=== PATIENT | male | born 1955 | race Caucasian/White ===

== ENCOUNTER 2016-10-18 10:05 | Inpatient (IN) | payer OTHER ==
[2016-10-18 10:41] VITALS: BMI 21.2
--- NOTE | 2016-10-18 13:44 | HP ---
CIWA Score - CIWA Score Nausea/Vomitin-No Nausea/No Vomiting Muscle Tremors: 4-Moderate,w/Arms Extend Anxiety: 4-Mod. 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 PT ON ZEPATIER FOR HEP C TX AND HE IS NOT SCHEDULED TO RECIEVE IT TILL 10/24/16. Exam Limitations: No Limitations - Ebola screening Have you traveled outside of the country in the last 21 days: No Have you had contact with anyone from an Ebola affected area: No Have you been sick,other than usual withdrawal symptoms: No Do you have a fever: No - Review of Systems Constitutional: Chills, Loss of Appetite, Night Sweats, Changes in sleep EENT: reports: Blurred Vision, Tearing, Nose Congestion, Dental Problems (UPPER/ LOWER DENTURES) Respiratory: reports: Shortness of Breath (HX ASTHMA), Wheezing Cardiac: reports: Chest Pain, Lightheadedness GI: reports: Poor Appetite, Poor Fluid Intake, Abdominal cramping : reports: Dysuria Musculoskeletal: reports: Back Pain, Joint Pain, Other (ARHTHRITIS LEFT ANKLE-- SURGERY X 3.) Integumentary: reports: No Symptoms Reported Neuro: reports: Headache, Seizure, Tremors, Unsteady Gait, Dizziness Endocrine: reports: No Symptoms Reported Hematology: reports: Anemia Psychiatric: reports: Orientated x3, Anxious, Depressed Other Systems: Reviewed and Negative Patient History - Patient Medical History Hx Anemia: Yes ( ) Hx Asthma: Yes Hx Chronic Obstructive Pulmonary Disease (COPD): No Hx Cancer: No Hx Cardiac Disorders: No Hx Congestive Heart Failure: No Hx Hypertension: No Hx Hypercholesterolemia: No Hx Pacemaker: No HX Cerebrovascular Accident: No Hx Seizures: Yes (drug related-last episode was in 08/2016) Hx Dementia: No Hx Diabetes: No Hx Gastrointestinal Disorders: No Hx Liver Disease: Yes (CIRRHOSIS) Hx Genitourinary Disorders: No Hx Sexually Transmitted Disorders: Yes (syphilis, gonorrhea, herpes) Hx Renal Disease (ESRD): No Hx Thyroid Disease: No Hx Human Immunodeficiency Virus (HIV): No (NEGATIVE HX) Hx Hepatitis C: Yes (IN TREATMENT WITH ZEPATIER) Hx Depression: Yes Hx Suicide Attempt: No (DENIES) Hx Schizophrenia: Yes - Patient Surgical History Past Surgical History: No Hx Neurologic Surgery: No Hx Cataract Extraction: No Hx Cardiac Surgery: No Hx Lung Surgery: No Hx Breast Surgery: No Hx Breast Biopsy: No Hx Abdominal Surgery: No Hx Appendectomy: No Hx Cholecystectomy: No Hx Genitourinary Surgery: No Hx Orthopedic Surgery: No Anesthesia Reaction: No - PPD History Previous Implant?: Yes Documented Results: Negative w/proof Implanted On Prior R Admission?: Yes Date: 07/01/11 Results: 0 mm PPD to be Administered?: Yes - Reproductive History Patient is a Female of Child Bearing Age (11 -55 yrs old): No (MALE) Patient : (N/A) - Smoking Cessation Smoking history: Current every day smoker Have you smoked in the past 12 months: Yes Aproximately how many cigarettes per day: 7 Cigars Per Day: 7 Hx Chewing Tobacco Use: No Initiated information on smoking cessation: Yes 'Breaking Loose' booklet given: 10/18/16 - Substance & Tx. History Hx Alcohol Use: No (DENIES) Hx Substance Use: Yes (XANAX) Substance Use Type: Tranquilizers Hx Substance Use Treatment: Yes (CURRENTLY ON MMTP 90 MG DAILY; LAST HERE IN 2011) - Substances Abused Xanax Route: Oral Frequency: 3-6 times per week Amount used: 4 mg. Age of first use: 43 Date of Last Use: 10/17/16 Family Disease History - Family Disease History Family Disease History: CA: Mother (), Other: Father (ALCOHOLISM- ), Brother (HTN), Sister (HTN) Admission Physical Exam BHS - Vital Signs Vital Signs: Vital Signs - 24 hr 10/18/16 10:38 Temperature 97.4 F L Pulse Rate 67 Respiratory 18 Rate Blood Pressure 126/84 - Physical General Appearance: Yes: Moderate Distress, Irritable, Anxious HEENTM: Yes: EOMI, Normocephalic, GUSTAVO Respiratory: Yes: Lungs Clear, Normal Breath Sounds, No Respiratory Distress Neck: Yes: Supple, Trachea in good position Breast: Yes: Breast Exam Deferred Cardiology: Yes: Regular Rhythm, Regular Rate, S1, S2 Abdominal: Yes: Normal Bowel Sounds, Non Tender, Flat, Soft Genitourinary: Yes: Other (N/C) Back: Yes: Within Normal Limits Musculoskeletal: Yes: full range of Motion, Gait Steady Extremities: Yes: Normal Range of Motion, Non-Tender Neurological: Yes: chief clerk II-XII NML intact, Fully Oriented, Alert Integumentary: Yes: Dry, Warm Lymphatic: Yes: Within Normal Limits - Diagnostic (1) Sedative, hypnotic or anxiolytic dependence with withdrawal, uncomplicated Current Visit: Yes Status: Acute (2) OLD FX LEFT ANKLE,AMBULATE WITH CANE Current Visit: Yes Status: Chronic Comment: PT DID NOT BRING CANE. PT "USED MY UMBRELLA CANE TODAY BECAUSE IT WAS RAINING". (3) Asthma Current Visit: Yes Status: Chronic Qualifiers: Asthma severity: mild intermittent Asthma complication type: uncomplicated Qualified Code(s): J45.20 - Mild intermittent asthma, uncomplicated (4) Seizure disorder Current Visit: Yes Status: Chronic (5) Cirrhosis of liver Current Visit: Yes Status: Chronic Qualifiers: Ascites presence: without ascites Comment: CURRENTLY IN TREATMENT WITH ZEPATIER (6) Methadone maintenance therapy patient Current Visit: Yes Status: Chronic Cleared for Admission S - Detox or Rehab [facility] Level of Care: Medically Managed Detox Regimen/Protocol: Valium [facility] Breath Alcohol Content Breath Alcohol Content: 0 Urine Drug Screen - Results Drug Screen Negative: No Urine Drug Screen Results: BZO-Benzodiazepines, MTD-Methadone
[2016-10-18] MEDS ORDERED: ACETAMINOPHEN 325 MG TABLET (FP) PO PRN (13:57)
[2016-10-18] MEDS ORDERED: IBUPROFEN 400 MG TABLET (FP) PO PRN (13:57)
[2016-10-18] MEDS ORDERED: diazePAM 5 MG TABLET PO PRN (13:57)
[2016-10-18] MEDS ORDERED: MENTHOL/PHENOL 1 EACH UD MM PRN (13:57)
[2016-10-18] MEDS ORDERED: NICOTINE POLACRILEX 2 MG GUM BC PRN (13:57)
[2016-10-18] MEDS ORDERED: LOPERAMIDE HCL 2 MG CAPSULE PO PRN (13:57)
[2016-10-18] MEDS ORDERED: MAGNESIUM HYDROX 2400MG/30ML ORAL SUSPENSION 30 ML CUP PO PRN (13:57)
[2016-10-18] MEDS ORDERED: MAG HYDROX/AL HYDROX/SIMETH 30 ML UNIT-DOSE CUP PO PRN (13:57)
[2016-10-18] MEDS ORDERED: P-EPHED 60MG/TRIPROLIDI 2.5MG TABLET PO PRN (13:57)
[2016-10-18] MEDS ORDERED: MAGNESIUM CITRATE 300 ML BOTTLE PO PRN (13:57)
[2016-10-18] MEDS ORDERED: guaiFENesin/D-METHORPHAN HB 10 ML UNIT-DOSE CUPS PO PRN (13:57)
[2016-10-18] MEDS ORDERED: hydrOXYzine PAMOATE 50 MG CAPSULE (FP) PO PRN (13:57)
[2016-10-18] MEDS ORDERED: ALBUTEROL SO4 6.7 GM HFA INHALER IH PRN (14:03)
[2016-10-18] MEDS ORDERED: METHADONE HCL 10 MG TABLET (FOR DETOX USE ONLY) PO ONE ×2 (14:30→23:00)
[2016-10-18] MEDS ORDERED: diazePAM 5 MG TABLET PO ONE (14:30)
[2016-10-18] MEDS: NICOTINE 14 MG/24 HOURS TOPICAL PATCH TD SCH (17:18)
[2016-10-18 17:25] LABS: URINE APPEARANCE SLCLOUDY; URINE BILIRUBIN NEGATIVE (NEGATIVE); URINE BLOOD NEGATIVE (NEGATIVE); URINE COLOR YELLOW; URINE GLUCOSE (UA) NEGATIVE (NEGATIVE); URINE KETONE NEGATIVE (NEGATIVE); URINE LEUK ESTERASE TRACE (NEGATIVE); URINE NITRITE NEGATIVE (NEGATIVE); URINE PROTEIN NEGATIVE (NEGATIVE); URINE UROBILINOGEN NEGATIVE mg/dL (0.2-1.0)
[2016-10-18 17:37] LABS: URINE RBC <1 /hpf (0-3)
[2016-10-18] MEDS: diphenhydrAMINE HCL 50 MG CAPSULE PO PRN (22:53)
[2016-10-18] MEDS: diazePAM 5 MG TABLET PO SCH (22:53)
[2016-10-18] MEDS: THIAMINE HCL 100 MG TABLET (FP) PO SCH (22:53)
[2016-10-19] MEDS ORDERED: METHADONE HCL 10 MG TABLET ONE (04:04)
[2016-10-19] MEDS ORDERED: METHADONE HCL 40 MG DISPERSABLE TABLET ONE (04:04)
[2016-10-19] MEDS: METHADONE 80 MG, METHADONE 10 MG PO SCH (05:29)
[2016-10-19] MEDS: diazePAM 5 MG TABLET PO SCH ×3 (05:30→23:00)
[2016-10-19] MEDS ORDERED: METHADONE HCL 10 MG TABLET PO SCH (06:00)
--- NOTE | 2016-10-19 09:06 | EKG ---
Test Reason : Blood Pressure : / mmHG Vent. Rate : 060 BPM Atrial Rate : 060 BPM P-R Int : 130 ms QRS Dur : 082 ms QT Int : 504 ms P-R-T Axes : 041 -58 055 degrees QTc Int : 504 ms NORMAL SINUS RHYTHM LEFT ANTERIOR FASCICULAR BLOCK PROLONGED QT ABNORMAL ECG NO PREVIOUS ECGS AVAILABLE Confirmed by FAHAD CALIX MD ([id number]) on 10/19/2016 9:06:31 AM Referred By: Ced Lin Confirmed By:FAHDA CALIX MD
[2016-10-19 09:52] LABS: MCH 30.7 pg (25.7-33.7); MCHC 33.5 g/dl (32.0-35.9); MEAN CELL VOLUME 91.5 fl (80-96); MEAN PLT VOLUME 10.9 fl (7.5-11.1); PLATELET COUNT 84 K/MM3 (134-434); RDW 14.4 % (11.9-15.9); WHITE BLOOD COUNT 6.5 K/mm3 (4.0-10.0)
[2016-10-19] MEDS ORDERED: METHADONE HCL 10 MG TABLET (FOR DETOX USE ONLY) PO SCH (10:00)
[2016-10-19] MEDS: NICOTINE 14 MG/24 HOURS TOPICAL PATCH TD SCH (10:40)
[2016-10-19] MEDS: PRENATAL VITAMINS W/ FOLIC ACID TABLET (FP) PO SCH (10:40)
[2016-10-19 11:05] LABS: ALBUMIN 3.9 g/dl (3.4-5.0); ALK PHOS 80 U/L (45-117); ANION GAP 7 (8-16); BILIRUBIN,TOTAL 1.3 mg/dL (0.2-1.0); CALCIUM 9.2 mg/dL (8.5-10.1); CO2 30 mmol/L (21-32); CREATININE 0.9 mg/dL (0.7-1.3); GLUCOSE,RANDOM 76 mg/dL (74-106); SGOT/AST 26 U/L (15-37); SGPT/ALT 18 U/L (12-78); TOT PROT 7.5 g/dl (6.4-8.2)
--- NOTE | 2016-10-19 12:31 | CONSULT ---
[facility] Psychiatric Consult - Data Date of interview: 10/19/16 Admission source: [facility] Identifying data: Readmission to [facility] for this 61 y/o male seeking detox treatment on for xanax and opioid dependence.Patient is ,a father of one,domiciled,unemployed and supported on SSI benefits. Substance Abuse History: Discussed with patient in this interview.Patient confirms the pattern of subastance abuse described in this report. Smoking Cessation. Smoking history: Current every day smoker. Have you smoked in the past 12 months: Yes. Aproximately how many cigarettes per day: 7. Cigars Per Day: 7. Hx Chewing Tobacco Use: No. Initiated information on smoking cessation : Yes. 'Breaking Loose' booklet given: 10/18/16. - Substance & Tx. History. Hx Alcohol Use: No (DENIES). Hx Substance Use: Yes (XANAX). Substance Use Type : Tranquilizers. Hx Substance Use Treatment: Yes (CURRENTLY ON MMTP 90 MG DAILY ; LAST HERE IN 2011). - Substances Abused. Xanax. Route: Oral. Frequency : 3-6 times per week. Amount used: 4 mg. Age of first use: 43. Date of Last Use: 10/17/16 Medical History: Remarkable for anemia,withdrawal-related seizures,bronchial asthma,hepatitis C,herpes genitalis and past treatment for gonorrhea + syphilis. Psychiatric History: Questionable historian.Presents with a history of past psychiatric hospitalizations at [facility].Diagnosed with Schizophrenia.Mr Sparks reports follow up with a psychiatrist for past three years.Lost to OPD care at this time (psychiatrist relocated to another area).Used to be prescribed ambien + xanax.Patient denies history of suicide attempts.Currently on methadone maintenance (90 mg/day). Physical/Sexual Abuse/Trauma History: Patient denies. Additional Comment: Urine Drug Screen Results: BZO-Benzodiazepines, MTD- Methadone.Noted. Mental Status Exam - Mental Status Exam Alert and Oriented to: Time, Place, Person Cognitive Function: Grossly Intact Patient Appearance: Well Groomed (frail habitus) Mood: Nervous, Withdrawn, Apprehensive Patient Behavior: Passive, Fatigued, Appropriate, Cooperative Speech Pattern: Clear Voice Loudness: Mildly Soft/Quiet Thought Process: Goal Oriented Thought Disorder: Not Present Hallucinations: Denies Suicidal Ideation: Denies Homicidal Ideation: Denies Insight/Judgement: Poor Sleep: Well Appetite: Poor, Weight loss Muscle strength/Tone: Normal Gait/Station: Other (slow gait) Psychiatric Findings - Problem List ([place] 1, 2,3) (1) Sedative, hypnotic or anxiolytic dependence with withdrawal, uncomplicated Current Visit: Yes Status: Acute (2) Opioid dependence on agonist therapy Current Visit: Yes Status: Acute (3) Substance induced mood disorder Current Visit: Yes Status: Acute (4) Schizoaffective disorder Current Visit: No Status: Chronic Comment: By history. (5) Asthma Current Visit: Yes Status: Chronic Qualifiers: Asthma severity: mild intermittent Asthma complication type: uncomplicated Qualified Code(s): J45.20 - Mild intermittent asthma, uncomplicated (6) Cirrhosis of liver Current Visit: Yes Status: Chronic Qualifiers: Ascites presence: without ascites Comment: CURRENTLY IN TREATMENT WITH ZEPATIER (7) Seizure disorder Current Visit: Yes Status: Chronic (8) OLD FX LEFT ANKLE,AMBULATE WITH CANE Current Visit: Yes Status: Chronic Comment: PT DID NOT BRING CANE. PT "USED MY UMBRELLA CANE TODAY BECAUSE IT WAS RAINING". - Initial Treatment Plan Initial Treatment Plan: Psychoeducation.Detoxification in progress.Observation.
--- NOTE | 2016-10-19 12:56 | PN ---
[facility] CIWA - CIWA Score Nausea/Vomitin-Mild Nausea/No Vomiting Muscle Tremors: 2 Anxiety: 4-Mod. Anxious/Guarded Agitation: 2 Paroxysmal Sweats: 3 Orientation: 2-Disoriented Date<2 days Tacttile Disturbances: 0-None Auditory Disturbances: 0-None Visual Disturbances: 0-None Headache: 4-Moderately Severe CIWA-Ar Total Score: 18 BHS Progress Note (SOAP) Subjective: Body Aches, H/A, Interrupted sleep, Sweating. Objective: PT. A & O X 2 (DISORIENTED ABOUT DAY / DATE). NO ACUTE DISTRESS. 10/19/16 12:53 Vital Signs Temperature 98.4 F 10/19/16 11:14 Pulse Rate 66 10/19/16 11:14 Respiratory Rate 18 10/19/16 11:14 Blood Pressure 108/84 10/19/16 11:14 O2 Sat by Pulse Oximetry (%) Laboratory Tests 10/18/16 10/19/16 10/19/16 16:00 06:00 06:00 WBC 6.5 RBC 4.81 Hgb 14.7 Hct 44.0 MCV 91.5 MCH 30.7 MCHC 33.5 RDW 14.4 Plt Count 84 L MPV 10.9 Sodium 141 Potassium 4.4 Chloride 104 Carbon Dioxide 30 Anion Gap 7 L BUN 10 D Creatinine 0.9 Creat Clearance w eGFR > 60 Random Glucose 76 D Calcium 9.2 Total Bilirubin 1.3 H AST 26 D ALT 18 D Alkaline Phosphatase 80 D Total Protein 7.5 Albumin 3.9 Urine Color Yellow Urine Appearance Slcloudy Urine pH 8.0 D Ur Specific [place] 1.015 Urine Protein Negative Urine Glucose (UA) Negative Urine Ketones Negative Urine Blood Negative Urine Nitrite Negative Urine Bilirubin Negative Urine Urobilinogen Negative Ur Leukocyte Esterase Trace Urine RBC <1 Urine WBC None LABS NOTED. RPR RESULT PENDING. 10/19/16 12:55 Assessment: 10/19/16 12:54 WITHDRAWAL SYMPTOMS. Plan: CONTINUE DETOX.
--- NOTE | 2016-10-19 14:23 | PN ---
[facility] Progress Note Note: Received report from RN about admission RPR result: REACTIVE 1:2 (MHA-TP Previously Reactive in 06/2011.). Patient reports previous treatment for Syphilis in past. Chaparro Moffett NP
[2016-10-19] MEDS: THIAMINE HCL 100 MG TABLET (FP) PO SCH (23:00)
[2016-10-19] MEDS: diphenhydrAMINE HCL 50 MG CAPSULE PO PRN (23:01)
[2016-10-20] MEDS ORDERED: METHADONE HCL 10 MG TABLET ONE (04:49)
[2016-10-20] MEDS ORDERED: METHADONE HCL 40 MG DISPERSABLE TABLET ONE (04:50)
[2016-10-20] MEDS: METHADONE 80 MG, METHADONE 10 MG PO SCH (06:31)
[2016-10-20] MEDS ORDERED: METHADONE HCL 5 MG TABLET (FOR DETOX USE ONLY) PO SCH (10:00)
[2016-10-20] MEDS: diazePAM 5 MG TABLET PO SCH ×2 (10:47→22:33)
[2016-10-20] MEDS: PRENATAL VITAMINS W/ FOLIC ACID TABLET (FP) PO SCH (10:47)
[2016-10-20] MEDS: NICOTINE 14 MG/24 HOURS TOPICAL PATCH TD SCH (10:48)
--- NOTE | 2016-10-20 20:44 | PN ---
[facility] CIWA - CIWA Score Nausea/Vomitin-No Nausea/No Vomiting Muscle Tremors: 3 Anxiety: 4-Mod. Anxious/Guarded Agitation: 3 Paroxysmal Sweats: 3 Orientation: 0-Oriented Tacttile Disturbances: 1-Very Mild Itch/Numbness Auditory Disturbances: 1-Very Mild Visual Disturbances: 2-Mild Sensitivity Headache: 0-None Present CIWA-Ar Total Score: 17 S Progress Note (SOAP) Subjective: Tremors, Constipation, Interrupted Sleep. Objective: PT. A & O X 3, OBSERVED AMBULATING ON UNIT. NO ACUTE DISTRESS. 10/20/16 20:40 Vital Signs Temperature 99.0 F 10/20/16 18:50 Pulse Rate 60 10/20/16 18:50 Respiratory Rate 16 10/20/16 18:50 Blood Pressure 110/73 10/20/16 18:50 O2 Sat by Pulse Oximetry (%) Laboratory Tests 10/18/16 10/19/16 10/19/16 16:00 06:00 06:00 WBC 6.5 RBC 4.81 Hgb 14.7 Hct 44.0 MCV 91.5 MCH 30.7 MCHC 33.5 RDW 14.4 Plt Count 84 L MPV 10.9 Sodium 141 Potassium 4.4 Chloride 104 Carbon Dioxide 30 Anion Gap 7 L BUN 10 D Creatinine 0.9 Creat Clearance w eGFR > 60 Random Glucose 76 D Calcium 9.2 Total Bilirubin 1.3 H AST 26 D ALT 18 D Alkaline Phosphatase 80 D Total Protein 7.5 Albumin 3.9 Urine Color Yellow Urine Appearance Slcloudy Urine pH 8.0 D Ur Specific [place] 1.015 Urine Protein Negative Urine Glucose (UA) Negative Urine Ketones Negative Urine Blood Negative Urine Nitrite Negative Urine Bilirubin Negative Urine Urobilinogen Negative Ur Leukocyte Esterase Trace Urine RBC <1 Urine WBC None RPR Titer T.pallidum Ab (MHA) 10/19/16 06:00 WBC RBC Hgb Hct MCV MCH MCHC RDW Plt Count MPV Sodium Potassium Chloride Carbon Dioxide Anion Gap BUN Creatinine Creat Clearance w eGFR Random Glucose Calcium Total Bilirubin AST ALT Alkaline Phosphatase Total Protein Albumin Urine Color Urine Appearance Urine pH Ur Specific [place] Urine Protein Urine Glucose (UA) Urine Ketones Urine Blood Urine Nitrite Urine Bilirubin Urine Urobilinogen Ur Leukocyte Esterase Urine RBC Urine WBC RPR Titer Reactive 1:2 H T.pallidum Ab (A) Previously reactive LABS NOTED. Assessment: 10/20/16 20:41 WITHDRAWAL SYMPTOMS. Plan: CONTINUE DETOX. INCREASE DAILY PO FLUID INTAKE. PRN MOM FOR CONSTIPATION.
[2016-10-20] MEDS: THIAMINE HCL 100 MG TABLET (FP) PO SCH (22:33)
[2016-10-20] MEDS: diphenhydrAMINE HCL 50 MG CAPSULE PO PRN (22:33)
[2016-10-21] MEDS ORDERED: METHADONE HCL 10 MG TABLET ONE (05:05)
[2016-10-21] MEDS ORDERED: METHADONE HCL 40 MG DISPERSABLE TABLET ONE (05:06)
[2016-10-21] MEDS: METHADONE 80 MG, METHADONE 10 MG PO SCH (05:26)
[2016-10-21] MEDS: PRENATAL VITAMINS W/ FOLIC ACID TABLET (FP) PO SCH (10:24)
[2016-10-21] MEDS: NICOTINE 14 MG/24 HOURS TOPICAL PATCH TD SCH (10:24)
[2016-10-21] MEDS: diazePAM 5 MG TABLET PO SCH ×2 (10:24→22:48)
--- NOTE | 2016-10-21 18:04 | PN ---
[facility] Progress Note (SOAP) Subjective: Stomach ache, constipation (took MOM without any improvement, doesn't want citroma, prefers dulcolax), sweating, anxious, interrupted sleep Objective: 10/21/16 18:01 Last Vital Signs Temp Pulse Resp BP Pulse Ox 97.0 F L 64 18 110/78 10/21/16 13:32 10/21/16 13:32 10/21/16 13:32 10/21/16 13:32 Laboratory Tests 10/18/16 10/19/16 10/19/16 16:00 06:00 06:00 WBC 6.5 RBC 4.81 Hgb 14.7 Hct 44.0 MCV 91.5 MCH 30.7 MCHC 33.5 RDW 14.4 Plt Count 84 L MPV 10.9 Sodium 141 Potassium 4.4 Chloride 104 Carbon Dioxide 30 Anion Gap 7 L BUN 10 D Creatinine 0.9 Creat Clearance w eGFR > 60 Random Glucose 76 D Calcium 9.2 Total Bilirubin 1.3 H AST 26 D ALT 18 D Alkaline Phosphatase 80 D Total Protein 7.5 Albumin 3.9 Urine Color Yellow Urine Appearance Slcloudy Urine pH 8.0 D Ur Specific [place] 1.015 Urine Protein Negative Urine Glucose (UA) Negative Urine Ketones Negative Urine Blood Negative Urine Nitrite Negative Urine Bilirubin Negative Urine Urobilinogen Negative Ur Leukocyte Esterase Trace Urine RBC <1 Urine WBC None RPR Titer T.pallidum Ab (A) 10/19/16 06:00 WBC RBC Hgb Hct MCV MCH MCHC RDW Plt Count MPV Sodium Potassium Chloride Carbon Dioxide Anion Gap BUN Creatinine Creat Clearance w eGFR Random Glucose Calcium Total Bilirubin AST ALT Alkaline Phosphatase Total Protein Albumin Urine Color Urine Appearance Urine pH Ur Specific [place] Urine Protein Urine Glucose (UA) Urine Ketones Urine Blood Urine Nitrite Urine Bilirubin Urine Urobilinogen Ur Leukocyte Esterase Urine RBC Urine WBC RPR Titer Reactive 1:2 H T.pallidum Ab (MHA) Previously reactive Labs noted Assessment: 10/21/16 18:02 Withdrawal symptoms Plan: Continue detox Dulcolax 10mg PO x 1 dose for constipation, encouraged to drink lots of water
[2016-10-21] MEDS: THIAMINE HCL 100 MG TABLET (FP) PO SCH (22:48)
[2016-10-21] MEDS: diphenhydrAMINE HCL 50 MG CAPSULE PO PRN (22:49)
[2016-10-22] MEDS ORDERED: METHADONE HCL 10 MG TABLET ONE (02:29)
[2016-10-22] MEDS ORDERED: METHADONE HCL 40 MG DISPERSABLE TABLET ONE (02:30)
[2016-10-22] MEDS: METHADONE 80 MG, METHADONE 10 MG PO SCH (05:35)
--- NOTE | 2016-10-22 08:59 | DS ---
[facility] Detox Discharge Summary Admission Date: 10/18/16 Discharge Date: 10/22/16 - History Present History: Sedative Dependence, MMTP Pertinent Past History: asthma, depression , insomnia, anxiety,liver cirrhosis, old fx left ankle ambulates w cane - Physical Exam Results Vital Signs: Vital Signs Temperature 97.3 F L 10/22/16 06:35 Pulse Rate 62 10/22/16 06:35 Respiratory Rate 18 10/22/16 06:35 Blood Pressure 138/88 10/22/16 06:35 O2 Sat by Pulse Oximetry (%) Laboratory Tests 10/18/16 10/19/16 10/19/16 16:00 06:00 06:00 WBC 6.5 RBC 4.81 Hgb 14.7 Hct 44.0 MCV 91.5 MCH 30.7 MCHC 33.5 RDW 14.4 Plt Count 84 L MPV 10.9 Sodium 141 Potassium 4.4 Chloride 104 Carbon Dioxide 30 Anion Gap 7 L BUN 10 D Creatinine 0.9 Creat Clearance w eGFR > 60 Random Glucose 76 D Calcium 9.2 Total Bilirubin 1.3 H AST 26 D ALT 18 D Alkaline Phosphatase 80 D Total Protein 7.5 Albumin 3.9 Urine Color Yellow Urine Appearance Slcloudy Urine pH 8.0 D Ur Specific [place] 1.015 Urine Protein Negative Urine Glucose (UA) Negative Urine Ketones Negative Urine Blood Negative Urine Nitrite Negative Urine Bilirubin Negative Urine Urobilinogen Negative Ur Leukocyte Esterase Trace Urine RBC <1 Urine WBC None RPR Titer T.pallidum Ab (MHA) 10/19/16 06:00 WBC RBC Hgb Hct MCV MCH MCHC RDW Plt Count MPV Sodium Potassium Chloride Carbon Dioxide Anion Gap BUN Creatinine Creat Clearance w eGFR Random Glucose Calcium Total Bilirubin AST ALT Alkaline Phosphatase Total Protein Albumin Urine Color Urine Appearance Urine pH Ur Specific [place] Urine Protein Urine Glucose (UA) Urine Ketones Urine Blood Urine Nitrite Urine Bilirubin Urine Urobilinogen Ur Leukocyte Esterase Urine RBC Urine WBC RPR Titer Reactive 1:2 H T.pallidum Ab (MHA) Previously reactive Pertinent Admission Physical Exam Findings: withdrawal sx - Treatment Hospital Course: Detox Protocol Followed, Detoxed Safely, Responded well, Discharged Condition Good, Rehab Referral Accepted - Medication Discharge Medications: Ambulatory Orders Albuterol Sulfate Inhaler - [Ventolin HFA Inhaler -] 2 inh PO Q4H PRN 10/18/16 Elbasvir/Grazoprevir [Zepatier 50-100 mg Tablet] 1 each PO DAILY 10/18/16 Zolpidem Tartrate [Ambien] 10 mg PO HS 10/18/16 - Diagnosis (1) Opioid dependence on agonist therapy Current Visit: Yes Status: Chronic (2) Sedative, hypnotic or anxiolytic dependence with withdrawal, uncomplicated Current Visit: Yes Status: Chronic (3) Substance induced mood disorder Current Visit: Yes Status: Acute (4) Asthma Current Visit: Yes Status: Chronic Qualifiers: Asthma severity: mild intermittent Asthma complication type: uncomplicated Qualified Code(s): J45.20 - Mild intermittent asthma, uncomplicated (5) Cirrhosis of liver Current Visit: Yes Status: Chronic Qualifiers: Ascites presence: without ascites (6) OLD FX LEFT ANKLE,AMBULATE WITH CANE Current Visit: Yes Status: Chronic (7) Seizure disorder Current Visit: Yes Status: Chronic (8) Syncope Current Visit: No Status: Resolved (9) Schizoaffective disorder Current Visit: Yes Status: Chronic - AMA Did Patient Leave Against Medical Advice: No
[2016-10-22 09:37] VITALS: BP 122/81; PULSE 68; TEMP 97.4
[2016-10-22] MEDS ORDERED: METHADONE HCL 10 MG TABLET (FOR DETOX USE ONLY) PO SCH (10:00)
[2016-10-22] MEDS ORDERED: diazePAM 5 MG TABLET PO SCH (10:00)
[2016-10-23] MEDS ORDERED: METHADONE HCL 5 MG TABLET (FOR DETOX USE ONLY) PO SCH (06:00)
== END 2016-10-22 09:22 | disposition home or self-care (01) | DRG 773 ==
LOC: YASAS 10:05 → Y3N 14:03
PROVIDERS: ADMIT Internal Medicine Addiction Medicine; ATTEND Internal Medicine Addiction Medicine
PROC: HZ2ZZZZ Detoxification Services for Substance Abuse Treatment (ICD-10-PCS; principal; 2016-10-18)
DX: F13.230 Sedative, hypnotic or anxiolytic dependence with withdrawal, uncomplicated (principal); F11.20 Opioid dependence, uncomplicated; F17.210 Nicotine dependence, cigarettes, uncomplicated; F19.24 Other psychoactive substance dependence with psychoactive substance-induced mood disorder; F25.9 Schizoaffective disorder, unspecified; G40.909 Epilepsy, unspecified, not intractable, without status epilepticus; J45.20 Mild intermittent asthma, uncomplicated; K74.60 Unspecified cirrhosis of liver; B17.10 Acute hepatitis C without hepatic coma; D64.9 Anemia, unspecified; R26.2 Difficulty in walking, not elsewhere classified; Z99.89 Dependence on other enabling machines and devices; Z87.81 Personal history of (healed) traumatic fracture; Z87.438 Personal history of other diseases of male genital organs
CPT/HCPCS: 36415; 80053; 81003; 81015; 85027; 86593; 86780; 93005; 93010

== ENCOUNTER 2017-08-16 10:43 | Inpatient (IN) | payer OTHER ==
[2017-08-16 11:21] VITALS: BMI 22.1
--- NOTE | 2017-08-16 13:20 | HP ---
CIWA Score - CIWA Score Nausea/Vomitin Muscle Tremors: 3 Anxiety: 3 Agitation: 3 Paroxysmal Sweats: 1-Minimal Palms Moist Orientation: 0-Oriented Tacttile Disturbances: 1-Very Mild Itch/Numbness Auditory Disturbances: 1-Very Mild Visual Disturbances: 0-None Headache: 2-Mild CIWA-Ar Total Score: 17 Admission ROS BHS - HPI Chief Complaint: i need help to stop using xanax and klonopin Allergies/Adverse Reactions: Allergies Allergy/AdvReac Type Severity Reaction Status Date / Time No Known Allergies Allergy Verified 08/16/17 13:40 History of Present Illness: this 62 years male with xanax and klonopin dependence,seeking detox,withdrawal symptom,mmtp 90 mgs /day,last medicated today, history of brain tumor on radiation and chemotherapy in 09/27 treated at [facility] weight loss nicotine dependence no significant period of sobriety anxiety and depression - Ebola screening Have you traveled outside of the country in the last 21 days: No Have you had contact with anyone from an Ebola affected area: No Have you been sick,other than usual withdrawal symptoms: No Do you have a fever: No - Review of Systems Constitutional: Chills, Loss of Appetite, Malaise, Night Sweats, Changes in sleep, Weakness, Unexplained wgt Loss EENT: reports: Nose Congestion Respiratory: reports: No Symptoms reported Cardiac: reports: No Symptoms Reported GI: reports: Diarrhea, Nausea, Vomiting, Abdominal cramping : reports: No Symptoms Reported Musculoskeletal: reports: Back Pain, Muscle Pain Integumentary: reports: Dryness Neuro: reports: Headache, Tremors Endocrine: reports: No Symptoms Reported Hematology: reports: No Symptoms Reported Psychiatric: reports: No Sypmtoms Reported, Judgement Intact, Mood/Affect Appropiate, Orientated x3 (insomnia), Anxious, Depressed Patient History - Patient Medical History Hx Anemia: Yes ( ) Hx Asthma: Yes Hx Chronic Obstructive Pulmonary Disease (COPD): No Hx Cancer: No Hx Cardiac Disorders: No Hx Congestive Heart Failure: No Hx Hypertension: No Hx Hypercholesterolemia: No Hx Pacemaker: No HX Cerebrovascular Accident: No Hx Seizures: Yes (drug related-last episode was in 08/2016) Hx Dementia: No Hx Diabetes: No Hx Gastrointestinal Disorders: No Hx Liver Disease: Yes (CIRRHOSIS) Hx Genitourinary Disorders: No Hx Sexually Transmitted Disorders: Yes (syphilis, gonorrhea, herpes) Hx Renal Disease (ESRD): No Hx Thyroid Disease: No Hx Human Immunodeficiency Virus (HIV): No (NEGATIVE HX) Hx Hepatitis C: Yes (IN TREATMENT WITH ZEPATIER) Hx Depression: Yes Hx Suicide Attempt: No (DENIES) Hx Schizophrenia: Yes Other Medical History: no suicidal,no homicidal - Patient Surgical History Past Surgical History: No Hx Neurologic Surgery: Yes (brain tumor) Hx Cataract Extraction: No Hx Cardiac Surgery: No Hx Lung Surgery: No Hx Breast Surgery: No Hx Breast Biopsy: No Hx Abdominal Surgery: No Hx Appendectomy: No Hx Cholecystectomy: No Hx Genitourinary Surgery: No Hx Section: No Hx Orthopedic Surgery: No Anesthesia Reaction: No - PPD History Previous Implant?: Yes Documented Results: Negative w/proof Date: 10/20/16 Results: 0 mm PPD to be Administered?: No - Smoking Cessation Smoking history: Current every day smoker Have you smoked in the past 12 months: Yes Aproximately how many cigarettes per day: 10 Cigars Per Day: 0 Hx Chewing Tobacco Use: No Initiated information on smoking cessation: Yes 'Breaking Loose' booklet given: 08/16/17 - Substance & Tx. History Hx Alcohol Use: No Hx Substance Use: Yes Substance Use Type: Tranquilizers Hx Substance Use Treatment: Yes ([facility] 10/18/16 to 10/22/16) - Substances Abused Alprazolam (Xanax) Route: Oral Frequency: Daily Amount used: 2/2MG Age of first use: 45 Date of Last Use: 08/16/17 Benzodiazepine (Klonopin) Route: Oral Frequency: Daily Amount used: 2/2MG Age of first use: 45 Date of Last Use: 08/16/17 Family Disease History - Family Disease History Family Disease History: CA: Mother (,colon), Sister (HTN,breast,decesed) , Other: Father (ALCOHOLISM-), Brother (HTN), Sister Admission Physical Exam [facility] - Vital Signs Vital Signs: Vital Signs - 24 hr 08/16/17 11:19 Temperature 97.3 F L Pulse Rate 70 Respiratory 18 Rate Blood Pressure 129/79 - Physical General Appearance: Yes: Moderate Distress, Tremorous, Irritable, Sweating, Anxious HEENTM: Yes: Normal ENT Inspection, GUSTAVO, Pharynx Normal, Other (scar occipital area) Respiratory: Yes: Chest Non-Tender, Lungs Clear, Normal Breath Sounds, No Respiratory Distress Neck: Yes: Within Normal Limits, Supple, Trachea in good position Breast: Yes: Within Normal Limits Cardiology: Yes: Within Normal Limits, Regular Rhythm, Other Abdominal: Yes: Normal Bowel Sounds, Non Tender, Flat, Soft Genitourinary: Yes: Within Normal Limits Back: Yes: Within Normal Limits, Normal Inspection, Muscle Spasm Musculoskeletal: Yes: full range of Motion, Back pain, Muscle Pain Extremities: Yes: Tremors Neurological: Yes: telephone mechanic II-XII NML intact, Fully Oriented, Alert, Motor Strength 5/5 Integumentary: Yes: Dry Lymphatic: Yes: Within Normal Limits - Diagnostic (1) Sedative, hypnotic or anxiolytic dependence with withdrawal, uncomplicated Current Visit: No Status: Chronic (2) Insomnia Current Visit: Yes Status: Acute (3) Asthma Current Visit: No Status: Chronic Qualifiers: Asthma severity: mild intermittent Asthma complication type: uncomplicated (4) Cirrhosis of liver Current Visit: No Status: Chronic Qualifiers: Ascites presence: without ascites Comment: CURRENTLY IN TREATMENT WITH ZEPATIER (5) OLD FX LEFT ANKLE,AMBULATE WITH CANE Current Visit: No Status: Chronic Comment: PT DID NOT BRING CANE. PT "USED MY UMBRELLA CANE TODAY BECAUSE IT WAS RAINING". (6) Opioid dependence on agonist therapy Current Visit: No Status: Chronic (7) Seizure disorder Current Visit: No Status: Chronic (8) Anxiety and depression Current Visit: Yes Status: Acute (9) Brain tumor Current Visit: Yes Status: Acute (10) History of radiation therapy Current Visit: Yes Status: Acute (11) History of chemotherapy Current Visit: Yes Status: Acute Cleared for Admission [facility] - Detox or Rehab [facility] Level of Care: Medically Managed Detox Regimen/Protocol: Valium [facility] Breath Alcohol Content Breath Alcohol Content: 0 Urine Drug Screen - Results Drug Screen Negative: No Urine Drug Screen Results: BZO-Benzodiazepines, MTD-Methadone
[2017-08-16] MEDS ORDERED: MENTHOL/PHENOL 1 EACH UD MM PRN (13:38)
[2017-08-16] MEDS ORDERED: MAGNESIUM HYDROX 2400MG/30ML ORAL SUSPENSION 30 ML CUP PO PRN (13:38)
[2017-08-16] MEDS ORDERED: IBUPROFEN 400 MG TABLET (FP) PO PRN (13:38)
[2017-08-16] MEDS ORDERED: MAG HYDROX/AL HYDROX/SIMETH 30 ML UNIT-DOSE CUP PO PRN (13:38)
[2017-08-16] MEDS ORDERED: MAGNESIUM CITRATE 300 ML BOTTLE PO PRN (13:38)
[2017-08-16] MEDS ORDERED: NICOTINE POLACRILEX 2 MG GUM BUC PRN (13:38)
[2017-08-16] MEDS ORDERED: ACETAMINOPHEN 325 MG TABLET (FP) PO PRN (13:38)
[2017-08-16] MEDS ORDERED: guaiFENesin/D-METHORPHAN HB 10 ML UNIT-DOSE CUPS PO PRN (13:38)
[2017-08-16] MEDS ORDERED: LOPERAMIDE HCL 2 MG CAPSULE PO PRN (13:38)
[2017-08-16] MEDS ORDERED: P-EPHED 60MG/TRIPROLIDI 2.5MG TABLET PO PRN (13:38)
[2017-08-16] MEDS ORDERED: ALBUTEROL SO4 8 GM HFA INHALER IH PRN (13:42)
[2017-08-16] MEDS ORDERED: diazePAM 5 MG TABLET PO ONE (14:00)
[2017-08-16] MEDS: NICOTINE 21 MG/24 HOURS TOPICAL PATCH TD SCH (15:48)
[2017-08-16] MEDS: diazePAM 5 MG TABLET PO PRN (16:25)
--- NOTE | 2017-08-16 17:34 | CONSULT ---
[facility] Psychiatric Consult - Data Date of interview: 08/16/17 Admission source: [facility] Identifying data: Readmission to [facility] for this 61 y/o male seeking detox treatment on for xanax and opioid dependence.Patient is ,a father of one,domiciled,unemployed and supported on SSI benefits. Substance Abuse History: Confirmed by patient in this session.Smoking history: Current every day smoker. Have you smoked in the past 12 months: Yes. Aproximately how many cigarettes per day: 10. Cigars Per Day: 0. Hx Chewing Tobacco Use: No. Initiated information on smoking cessation: Yes. 'Breaking Loose' booklet given: 08/16/17. - Substance & Tx. History. Hx Alcohol Use: No. Hx Substance Use: Yes. Substance Use Type: Tranquilizers. Hx Substance Use Treatment: Yes ([facility] 10/18/16 to 10/22/16). - Substances Abused. Alprazolam (Xanax). Route: Oral. Frequency: Daily. Amount used: 2/2MG. Age of first use: 45. Date of Last Use: 08/16/17. Benzodiazepine (Klonopin). Route: Oral. Frequency: Daily. Amount used: 2/2MG. Age of first use: 45. Date of Last Use: 08/16/17 Medical History: Cirrhosis of the liver,brain tumor (on radiation therapy + chemotherapy),anemia,withdrawal-related seizures,bronchial asthma,hepatitis C, past treatment for venereal diseases (herpes genitalis + gonorrhea + syphilis). Psychiatric History: History of past psychiatric hospitalizations.Patient is known to [facility].Diagnosed with Schizophrenia.Mr Sparks reports follow up at an unnamed mental health clinic in the [place].Used to be prescribed ambien + xanax.Patient denies history of suicide attempts.Currently on methadone maintenance (90 mg/day). Physical/Sexual Abuse/Trauma History: Patient denies. Mental Status Exam - Mental Status Exam Alert and Oriented to: Time, Place, Person Cognitive Function: Grossly Intact Patient Appearance: Well Groomed (tattoos on both forearms) Mood: Nervous, Anxious Affect: Mood Congruent Patient Behavior: Fatigued, Appropriate (slow), Cooperative Speech Pattern: Clear Voice Loudness: Normal Thought Process: Goal Oriented Thought Disorder: Not Present Hallucinations: Denies Suicidal Ideation: Denies Homicidal Ideation: Denies Insight/Judgement: Poor Sleep: Poorly, Difficulty falling asleep Appetite: Fair Muscle strength/Tone: Normal Gait/Station: Other (slow) Psychiatric Findings - Problem List ([place] 1, 2,3) (1) Opioid dependence on agonist therapy Current Visit: Yes Status: Acute (2) Sedative, hypnotic or anxiolytic dependence with withdrawal, uncomplicated Current Visit: Yes Status: Acute (3) Substance induced mood disorder Current Visit: Yes Status: Acute (4) Schizoaffective disorder Current Visit: Yes Status: Suspected Comment: By history. (5) Insomnia Current Visit: Yes Status: Acute - Initial Treatment Plan Initial Treatment Plan: Psychoeducation.Sleep hygiene.Detoxification.Insomnia is addressed with melatonin 5 mg po hs prn.Side effects/benefits discussed with the patient.Mr Donahue agrees to this careplan.Observation.
[2017-08-16 18:56] LABS: URINE APPEARANCE CLEAR; URINE BILIRUBIN NEGATIVE (<2.0 mg/dL); URINE COLOR YELLOW; URINE GLUCOSE (UA) NEGATIVE (NEGATIVE); URINE KETONE NEGATIVE (NEGATIVE); URINE LEUK ESTERASE TRACE (NEGATIVE); URINE NITRITE NEGATIVE (NEGATIVE); URINE PROTEIN NEGATIVE (NEGATIVE)
[2017-08-16 20:10] LABS: URINE MUCUS RARE
[2017-08-16] MEDS ORDERED: MELATONIN 5 MG TABLETS PO PRN (22:00)
[2017-08-16] MEDS: diazePAM 5 MG TABLET PO SCH (22:33)
[2017-08-16] MEDS: THIAMINE HCL 100 MG TABLET (FP) PO SCH (22:33)
[2017-08-17] MEDS ORDERED: METHADONE HCL 10 MG TABLET ONE (04:02)
[2017-08-17] MEDS ORDERED: METHADONE HCL 40 MG DISPERSABLE TABLET ONE (04:02)
[2017-08-17] MEDS: METHADONE 80 MG, METHADONE 10 MG PO SCH (05:59)
[2017-08-17] MEDS: diazePAM 5 MG TABLET PO SCH ×3 (05:59→22:32)
[2017-08-17] MEDS ORDERED: METHADONE HCL 10 MG TABLET PO SCH (06:00)
[2017-08-17] MEDS: PRENATAL VITAMINS W/ FOLIC ACID TABLET (FP) PO SCH (10:22)
[2017-08-17] MEDS: NICOTINE 21 MG/24 HOURS TOPICAL PATCH TD SCH (10:23)
[2017-08-17 11:23] LABS: HEMATOCRIT 38.9 % (35.4-49); MCH 29.6 pg (25.7-33.7); MCHC 33.5 g/dl (32.0-35.9); MEAN CELL VOLUME 88.3 fl (80-96); MEAN PLT VOLUME 9.9 fl (7.5-11.1); PLATELET COUNT 80 K/MM3 (134-434); RDW 14.8 % (11.9-15.9); WHITE BLOOD COUNT 3.2 K/mm3 (4.0-10.0)
[2017-08-17 11:29] LABS: CHLORIDE 104 mmol/L (98-107); POTASSIUM 4.4 mmol/L (3.5-5.1); SODIUM 140 mmol/L (136-145)
[2017-08-17 11:43] LABS: ALBUMIN 3.9 g/dl (3.4-5.0); ALK PHOS 70 U/L (45-117); ANION GAP 7 (8-16); BILIRUBIN,TOTAL 0.9 mg/dL (0.2-1.0); BLOOD UREA NITROGEN 10 mg/dL (7-18); CALCIUM 8.9 mg/dL (8.5-10.1); CO2 29 mmol/L (21-32); CREATININE 0.9 mg/dL (0.7-1.3); GLUCOSE,RANDOM 74 mg/dL (74-106); SGOT/AST 27 U/L (15-37); SGPT/ALT 18 U/L (12-78); TOT PROT 7.5 g/dl (6.4-8.2)
[2017-08-17 12:34] LABS: RPR REACTIVE 1:1 (NONREACTIVE)
[2017-08-17 12:35] LABS: TREPONEMA ANTIBODY PREVIOUSLY REACTIVE (NONREACTIVE)
--- NOTE | 2017-08-17 13:55 | PN ---
S CIWA - CIWA Score Nausea/Vomitin Muscle Tremors: None Anxiety: 5 Agitation: 4-Moderately Restless Paroxysmal Sweats: No Perspiration Orientation: 0-Oriented Tacttile Disturbances: 3-Moderate Itch/Numb/Burn Auditory Disturbances: 0-None Visual Disturbances: 3-Moderate Sensitivity Headache: 0-None Present CIWA-Ar Total Score: 18 BHS Progress Note (SOAP) Subjective: Nausea, Body Aches, Interrupted sleep, Anxious, Constipation. Objective: PATIENT A & O X 3, OBSERVED AMBULATING ON UNIT. NO ACUTE DISTRESS. 08/17/17 13:51 Vital Signs Temperature 96.7 F L 08/17/17 11:18 Pulse Rate 60 08/17/17 11:18 Respiratory Rate 18 08/17/17 11:18 Blood Pressure 109/75 08/17/17 11:18 O2 Sat by Pulse Oximetry (%) Laboratory Tests 08/16/17 08/17/17 08/17/17 15:00 05:45 05:45 WBC 3.2 L RBC 4.40 Hgb 13.0 Hct 38.9 MCV 88.3 MCH 29.6 MCHC 33.5 RDW 14.8 Plt Count 80 L MPV 9.9 Sodium 140 Potassium 4.4 Chloride 104 Carbon Dioxide 29 Anion Gap 7 L BUN 10 Creatinine 0.9 Creat Clearance w eGFR > 60 Random Glucose 74 Calcium 8.9 Total Bilirubin 0.9 AST 27 ALT 18 Alkaline Phosphatase 70 Total Protein 7.5 Albumin 3.9 Urine Color Yellow Urine Appearance Clear Urine pH 6.0 D Ur Specific Slater 1.012 Urine Protein Negative Urine Glucose (UA) Negative Urine Ketones Negative Urine Blood Negative Urine Nitrite Negative Urine Bilirubin Negative Urine Urobilinogen 2.0 Ur Leukocyte Esterase Trace Urine WBC (Auto) <1 Urine RBC (Auto) 1 Urine Mucus Rare RPR Titer T.pallidum Ab (A) 08/17/17 05:45 WBC RBC Hgb Hct MCV MCH MCHC RDW Plt Count MPV Sodium Potassium Chloride Carbon Dioxide Anion Gap BUN Creatinine Creat Clearance w eGFR Random Glucose Calcium Total Bilirubin AST ALT Alkaline Phosphatase Total Protein Albumin Urine Color Urine Appearance Urine pH Ur Specific Slater Urine Protein Urine Glucose (UA) Urine Ketones Urine Blood Urine Nitrite Urine Bilirubin Urine Urobilinogen Ur Leukocyte Esterase Urine WBC (Auto) Urine RBC (Auto) Urine Mucus RPR Titer Reactive 1:1 H D T.pallidum Ab ([facility]) Previously reactive LABS NOTED. HIV AB RESULT PENDING. PATIENT HAS HAD LOW PLATELET LEVELS ON PREVIOUS ADMISSIONS. MHA-TP PREVIOUSLY REACTIVE. PATIENT REPORTS THAT HE COMPLETE A COURSE OF ANTIBIOTIC TREATMENT FOR SYPHILIS IN THE PAST. 08/17/17 13:52 Assessment: 08/17/17 13:52 WITHDRAWAL SYMPTOMS. THROMBOCYTOPENIA. LEUKOPENIA. 08/17/17 13:55 Plan: CONTINUE DETOX.
[2017-08-17] MEDS: diazePAM 5 MG TABLET PO PRN (17:31)
[2017-08-17] MEDS: THIAMINE HCL 100 MG TABLET (FP) PO SCH (22:32)
[2017-08-18] MEDS ORDERED: METHADONE HCL 10 MG TABLET ONE (03:46)
[2017-08-18] MEDS ORDERED: METHADONE HCL 40 MG DISPERSABLE TABLET ONE (03:46)
[2017-08-18] MEDS: diazePAM 5 MG TABLET PO PRN (06:07)
[2017-08-18] MEDS: METHADONE 80 MG, METHADONE 10 MG PO SCH (06:08)
[2017-08-18 09:42] VITALS: BP 116/83; PULSE 68; TEMP 97.6
--- NOTE | 2017-08-18 09:44 | PN ---
S Progress Note (SOAP) Subjective: Pt requesting to go home today. Says he talked to his sister with whom he lives and he said that he was invited back to stay with her. Says he misses being at home and needs to leave. Pt has been here for 2 days- benzo detox and on methadone MAT. Objective: 08/18/17 09:59 Vital Signs - 24 hr 08/17/17 08/17/17 08/17/17 11:18 15:16 18:30 Temperature 96.7 F L 96.6 F L 97 F L Pulse Rate 60 54 L 59 L Respiratory 18 18 16 Rate Blood Pressure 109/75 128/83 122/81 08/17/17 08/18/17 08/18/17 23:52 00:30 03:30 Temperature 97.3 F L Pulse Rate 62 Respiratory 20 18 18 Rate Blood Pressure 134/74 08/18/17 08/18/17 06:23 09:40 Temperature 96.7 F L 97.6 F Pulse Rate 55 L 68 Respiratory 16 18 Rate Blood Pressure 129/71 116/83 CBCD WBC 3.2 K/mm3 (4.0-10.0) L 08/17/17 05:45 RBC 4.40 M/mm3 (4.00-5.60) 08/17/17 05:45 Hgb 13.0 GM/dL (11.7-16.9) 08/17/17 05:45 Hct 38.9 % (35.4-49) 08/17/17 05:45 MCV 88.3 fl (80-96) 08/17/17 05:45 MCHC 33.5 g/dl (32.0-35.9) 08/17/17 05:45 RDW 14.8 % (11.9-15.9) 08/17/17 05:45 Plt Count 80 K/MM3 (134-434) L 08/17/17 05:45 MPV 9.9 fl (7.5-11.1) 08/17/17 05:45 CMP Sodium 140 mmol/L (136-145) 08/17/17 05:45 Potassium 4.4 mmol/L (3.5-5.1) 08/17/17 05:45 Chloride 104 mmol/L (98-107) 08/17/17 05:45 Carbon Dioxide 29 mmol/L (21-32) 08/17/17 05:45 Anion Gap 7 (8-16) L 08/17/17 05:45 BUN 10 mg/dL (7-18) 08/17/17 05:45 Creatinine 0.9 mg/dL (0.7-1.3) 08/17/17 05:45 Creat Clearance w eGFR > 60 (>60) 08/17/17 05:45 Random Glucose 74 mg/dL (74-106) 08/17/17 05:45 Calcium 8.9 mg/dL (8.5-10.1) 08/17/17 05:45 Total Bilirubin 0.9 mg/dL (0.2-1.0) 08/17/17 05:45 AST 27 U/L (15-37) 08/17/17 05:45 ALT 18 U/L (12-78) 08/17/17 05:45 Alkaline Phosphatase 70 U/L (45-117) 08/17/17 05:45 Total Protein 7.5 g/dl (6.4-8.2) 08/17/17 05:45 Albumin 3.9 g/dl (3.4-5.0) 08/17/17 05:45 stable Vs nl labs pt ambulatory with cane alert and oriented Assessment: 08/18/17 10:00 methadone OTP detox from Benzo- pt wants to leave to be with sister Plan: AMA discharge
[2017-08-18] MEDS ORDERED: diazePAM 5 MG TABLET PO SCH (10:00)
--- NOTE | 2017-08-18 10:06 | DS ---
[facility] Detox Discharge Summary Admission Date: 08/16/17 Discharge Date: 08/18/17 (leaving AMA) - History Present History: Sedative Dependence, MMTP Additional Comments: pt stable, did not finish detox Pertinent Past History: h/o brain tumor on MAT methadone did not finish benzo detox - Physical Exam Results Vital Signs: Vital Signs Temperature 97.6 F 08/18/17 09:40 Pulse Rate 68 08/18/17 09:40 Respiratory Rate 18 08/18/17 09:40 Blood Pressure 116/83 08/18/17 09:40 O2 Sat by Pulse Oximetry (%) Pertinent Admission Physical Exam Findings: nl PE, ambulatory with cane - Treatment Hospital Course: Detox Protocol Followed - Medication Discharge Medications: Ambulatory Orders Albuterol Sulfate Inhaler - [Ventolin HFA Inhaler -] 2 inh PO Q4H PRN 10/18/16 - Diagnosis (1) Sedative, hypnotic or anxiolytic dependence with withdrawal, uncomplicated Current Visit: Yes Status: Acute (2) Opioid dependence on agonist therapy Current Visit: Yes Status: Chronic - AMA Did Patient Leave Against Medical Advice: Yes
[2017-08-18] MEDS: NICOTINE 21 MG/24 HOURS TOPICAL PATCH TD SCH (11:49)
[2017-08-18] MEDS: PRENATAL VITAMINS W/ FOLIC ACID TABLET (FP) PO SCH (11:49)
--- NOTE | 2017-08-19 09:19 | EKG ---
Test Reason : Blood Pressure : / mmHG Vent. Rate : 051 BPM Atrial Rate : 051 BPM P-R Int : 140 ms QRS Dur : 084 ms QT Int : 494 ms P-R-T Axes : 040 -32 046 degrees QTc Int : 455 ms SINUS BRADYCARDIA LEFT AXIS DEVIATION ABNORMAL ECG WHEN COMPARED WITH ECG OF 16-AUG-2017 14:34, NO SIGNIFICANT CHANGE WAS FOUND Confirmed by ROGERS DON MD ([id number]) on 08/19/2017 9:19:35 AM Referred By: Confirmed By:ROGERS DON MD
[2017-08-20] MEDS ORDERED: diazePAM 5 MG TABLET PO SCH (10:00)
== END 2017-08-18 10:30 | disposition left against medical advice (07) | DRG 770 ==
LOC: YASAS 10:43 → Y3N 13:42
PROVIDERS: ADMIT Surgery; ATTEND Surgery
PROC: HZ2ZZZZ Detoxification Services for Substance Abuse Treatment (ICD-10-PCS; principal; 2017-08-16)
DX: F11.20 Opioid dependence, uncomplicated (principal); F13.230 Sedative, hypnotic or anxiolytic dependence with withdrawal, uncomplicated; F19.24 Other psychoactive substance dependence with psychoactive substance-induced mood disorder; F25.9 Schizoaffective disorder, unspecified; F41.8 Other specified anxiety disorders; G47.00 Insomnia, unspecified; J45.20 Mild intermittent asthma, uncomplicated; G40.909 Epilepsy, unspecified, not intractable, without status epilepticus; K74.60 Unspecified cirrhosis of liver; D49.6 Neoplasm of unspecified behavior of brain; Z92.21 Personal history of antineoplastic chemotherapy; R26.89 Other abnormalities of gait and mobility; Z99.89 Dependence on other enabling machines and devices; Z86.19 Personal history of other infectious and parasitic diseases; Z92.3 Personal history of irradiation
CPT/HCPCS: 36415; 80053; 81003; 81015; 85027; 86593; 86780; 87389; 93005; 93010

== ENCOUNTER 2019-10-29 09:24 | Inpatient (IN) | payer OTHER ==
--- NOTE | 2019-10-29 10:04 | BHS.RME ---
Substance Use & Tx History - Substance Use History Xanax Substance amount: 2 mg Frequency of use: Daily Substance route: Oral Date of Last Use: 10/28/19 Nicotine Substance amount: 5 cigs Frequency of use: Daily Substance route: Smoking Date of Last Use: 10/29/19 - Last Treatment Date of last treatment: August 16, 2017 to August 18, AMA Treatment type: Substance Use Disorder (FRANTZ) Where was last treatment: Detox Physical/Psych/Mental Status - Behavior General Behavior: Increased activity (restlessness, agitation) Eye Contact: Normal - Cooperativeness Cooperativeness: Cooperative - Thinking Thought Processes: Tight Thought content: Future oriented - Physical Health Problems Is patient presently having any pain?: Yes (chronic left ankle pain) Does patient presently have any injuries (include location): No Does patient currently have a fever: No CIWA Nausea/Vomitin-No Nausea/No Vomiting Muscle Tremors: 3 Anxiety: 3 Agitation: 0-Normal Activity Paroxysmal Sweats: 1-Minimal Palms Moist Orientation: 0-Oriented Tacttile Disturbances: 0-None Auditory Disturbances: 2-Mild Harshness/Frighten Visual Disturbances: 0-None Headache: 0-None Present CIWA-Ar Total Score: 9
--- OUTSIDE RECORDS SUMMARY | 2019-10-29 10:10 | XMS ---
:1955 Author Organization [facility] Support Name Relationship Address Phone UE Unavailable Unavailable Unavailable SINA LAURA SISTER [id number] [address] NANCY LAURA SISTER [address] [address] Re-disclosure Warning The records that you are about to access may contain information from federally- assisted alcohol or drug abuse programs. If such information is present, then the following federally mandated warning applies: This information has been disclosed to you from records protected by federal confidentiality rules (42 CFR part 2). The federal rules prohibit you from making any further disclosure of this information unless further disclosure is expressly permitted by the written consent of the person to whom it pertains or as otherwise permitted by 42 CFR part 2. A general authorization for the release of medical or other information is NOT sufficient for this purpose. The Federal rules restrict any use of the information to criminally investigate or prosecute any alcohol or drug abuse patient.The records that you are about to access may contain highly sensitive health information, the redisclosure of which is protected by Article 27-F of the [facility] Public Health law. If you continue you may haveaccess to information: Regarding HIV / AIDS; Provided by facilities licensed or operated by the [facility] Office of Mental Health; or Provided by the [facility] Office for People With Developmental Disabilities. If such information is present, then the following [facility] mandated warning applies: This information has been disclosed to you from confidential records which are protected by state law. State law prohibits you from making any further disclosure of this information without the specific written consent of the person to whom it pertains, or as otherwise permitted by law. Any unauthorized further disclosure in violation of state law may result in a fine or halfway sentence or both. A general authorization for the release of medical or other information is NOT sufficient authorization for further disclosure. Insurance Providers Payer name Policy type Policy ID Covered Covered democrat's Policy P susan / Coverage democrat ID relationship to [employer] [id number] SP [id number] FIRST Results ID Date Data Source [id number] 10/17/2019 12:00:00 AM EDT [facility] Name Value Range Interpretation Code Description Data Lee Ann rce(s) Supporting Document(s ) 2019-nCoV [facility] RNA XXX RICHARD+probe- Imp This lab was ordered by [facility] and reported by [employer] ID Date Data Source [id number] 09/29/2019 01:13:00 PM EDT [facility] Name Value Range Interpretation Code Description Data Lee Ann rce(s) Supporting Document(s ) SARS-CoV-2 [facility] Ql RICHARD+probe This lab was ordered by [facility] a nd reported by [facility]. ID Date Data Source [id number] 09/12/2019 02:06:00 PM EDT [facility] Name Value Range Interpretation Code Description Data Lee Ann rce(s) Supporting Document(s ) SARS-CoV-2 [facility] Ql RICHARD+probe This lab was ordered by [facility] a nd reported by [facility]. Procedure
[2019-10-29 10:37] VITALS: BMI 21.5
--- NOTE | 2019-10-29 10:57 | HP ---
CIWA Score Nausea/Vomitin-No Nausea/No Vomiting Muscle Tremors: 3 Anxiety: 3 Agitation: 0-Normal Activity Paroxysmal Sweats: 1-Minimal Palms Moist Orientation: 0-Oriented Tacttile Disturbances: 0-None Auditory Disturbances: 2-Mild Harshness/Frighten Visual Disturbances: 0-None Headache: 0-None Present CIWA-Ar Total Score: 9 - Admission Criteria OASAS Guidelines: Admission for Medically Managed Detox: Requires at least one of the followin. CIWA greater than 12 2. Seizures within the past 24 hours 3. Delirium tremens within the past 24 hours 4. Hallucinations within the past 24 hours 5. Acute intervention needed for co occurring medical disorder 6. Acute intervention needed for co occurring psychiatric disorder 7. Severe withdrawal that cannot be handled at a lower level of care (continued vomiting, continued diarrhea, abnormal vital signs) requiring intravenous medication and/or fluids 8. Admitting History and Physical - Admission Chief Complaint: Mr. Sparks is a 64 yo gentleman who presents to [facility] asking for detox from sedative use. History of Present Illness: Mr. Sparks is a 64 yo man who presents to [facility] asking for detox from Xanax. He left AMA after a 2 day stay in 2018 PMH: Brain tumor 2-3 years ago, asthma, Hep C treated, acid reflux, ? cirrhosis, left ankle pain post fracture 6 y ago, treated gonorrhea and Herpes PSH: right occipital region brain tumor, tx with surgery, radiation and chemo Psych: Anxiety, depression, Seroquel taken 2 days ago, another med he can not recall the name/may take for insomnia SOC: lives in a furnished room Legal: none Substance Use History Xanax Substance amount: 2 mg Frequency of use: Daily Substance route: Oral Date of Last Use: 10/28/19 First use age 52 yo Withdrawal seizure 9-18 mos ago/unclear time Nicotine Substance amount: 5 cigs Frequency of use: Daily Substance route: Smoking Date of Last Use: 10/29/19 Began smoking age 14y Methadone: 90 mg, pt states he was medicated today, [facility] - Last Treatment Date of last treatment: August 16, 2017 to August 18, left A Treatment type: Substance Use Disorder (FRANTZ) Where was last treatment: Detox Others' Prescriptions Patient Name: Reg Sparks Date: 1955 Address: [address] [place], [place] [id number] Sex: Male Rx Written Rx Dispensed Drug Quantity Days Supply Prescriber Name 02/19/2019 02/19/2019 clonazepam 0.5 mg tablet 14 14 Tonia Arreola MD Payment Method Insurance * Dispenser [facility] 02/12/2019 02/12/2019 clonazepam 0.25 mg odt 10 5 Tonia Arreola MD Pt meeds admission criteria: comorbid psychiatric disorder, noncompliant with medication, requires Psychiatric services History Source: Patient Limitations to Obtaining History: No Limitations - Smoking History Smoking history: Current every day smoker Have you smoked in the past 12 months: Yes Aproximately how many cigarettes per day: 10 - Alcohol/Substance Use Hx Alcohol Use: No Admission ROS BHS - HPI Allergies/Adverse Reactions: Allergies Allergy/AdvReac Type Severity Reaction Status Date / Time No Known Allergies Allergy Verified 10/29/19 10:25 Exam Limitations: No Limitations - Ebola screening Have you traveled outside of the country in the last 21 days: No Have you been sick,other than usual withdrawal symptoms: No Do you have a fever: No - Review of Systems Constitutional: Changes in sleep (trouble falling asleep), Unintentional Wgt. Loss (10 lb weight loss in the past one year) EENT: reports: Blurred Vision (has glasses for reading with) Respiratory: reports: No Symptoms reported Cardiac: reports: No Symptoms Reported GI: reports: No Symptoms Reported : reports: No Symptoms Reported Musculoskeletal: reports: Joint Pain (left ankle, chronic) Integumentary: reports: No Symptoms Reported Neuro: reports: No Symptoms reported Endocrine: reports: No Symptoms Reported Hematology: reports: No Symptoms Reported Psychiatric: reports: Anxious, Depressed (no SI) Patient History - Patient Medical History Hx Anemia: Yes ( ) Hx Asthma: Yes Hx Chronic Obstructive Pulmonary Disease (COPD): No Hx Cancer: No Hx Cardiac Disorders: No Hx Congestive Heart Failure: No Hx Hypertension: No Hx Hypercholesterolemia: No Hx Pacemaker: No HX Cerebrovascular Accident: No Hx Seizures: Yes (drug related-last episode was in 08/2016) Hx Dementia: No Hx Diabetes: No Hx Gastrointestinal Disorders: No Hx Liver Disease: Yes (CIRRHOSIS) Hx Genitourinary Disorders: No Hx Sexually Transmitted Disorders: Yes (syphilis, gonorrhea, herpes) Hx Renal Disease (ESRD): No Hx Thyroid Disease: No Hx Human Immunodeficiency Virus (HIV): No (NEGATIVE HX) Hx Hepatitis C: Yes (IN TREATMENT WITH ZEPATIER) Hx Depression: Yes Hx Suicide Attempt: No (DENIES) Hx Schizophrenia: Yes - Patient Surgical History Past Surgical History: No Hx Neurologic Surgery: Yes (brain tumor) Hx Cataract Extraction: No Hx Cardiac Surgery: No Hx Lung Surgery: No Hx Breast Surgery: No Hx Breast Biopsy: No Hx Abdominal Surgery: No Hx Appendectomy: No Hx Cholecystectomy: No Hx Genitourinary Surgery: No Hx Section: No Hx Orthopedic Surgery: No Anesthesia Reaction: No - PPD History Date: 10/20/16 Results: 0 mm - Smoking Cessation Smoking history: Current every day smoker Have you smoked in the past 12 months: Yes Aproximately how many cigarettes per day: 5 Cigars Per Day: 0 Hx Chewing Tobacco Use: No Initiated information on smoking cessation: Yes 'Breaking Loose' booklet given: 10/29/19 - Substances abused Alprazolam (Xanax) Substance route: Oral Frequency: Daily Amount used: 2mg Age of first use: 54 Date of last use: 10/28/19 Admission Physical Exam BHS - Vital Signs Vital Signs: Vital Signs - 24 hr 10/29/19 10:26 Temperature 97.2 F L Pulse Rate 75 Respiratory 18 Rate Blood Pressure 123/87 - Physical General Appearance: Yes: Nourished, Appropriately Dressed, Thin, Tremorous, Anxious HEENTM: Yes: EOMI, Hearing grossly Normal, Normocephalic, Normal Voice Respiratory: Yes: Lungs Clear, No Respiratory Distress, No Accessory Muscle Use Neck: Yes: Within Normal Limits, Supple Breast: Yes: Breast Exam Deferred Cardiology: Yes: Regular Rhythm, Regular Rate Abdominal: Yes: Normal Bowel Sounds, Non Tender, Flat, Soft Genitourinary: Yes: Other (deferred) Back: Yes: Normal Inspection Musculoskeletal: Yes: Gait Steady Extremities: Yes: Normal Inspection, Non-Tender Neurological: Yes: Alert, Normal Response Integumentary: Yes: Within Normal Limits - Diagnostic (1) Nicotine dependence Current Visit: Yes Status: Acute (2) Hepatitis C Current Visit: Yes Status: Acute (3) Brain tumor Current Visit: No Status: Acute (4) Insomnia Current Visit: No Status: Acute Qualifiers: Insomnia type: unspecified Qualified Code(s): G47.00 - Insomnia, unspecified (5) Sedative, hypnotic or anxiolytic dependence with withdrawal, uncomplicated Current Visit: No Status: Acute (6) Methadone maintenance therapy patient Current Visit: No Status: Chronic (7) OLD FX LEFT ANKLE,AMBULATE WITH CANE Current Visit: No Status: Chronic Comment: PT DID NOT BRING CANE. PT "USED MY UMBRELLA CANE TODAY BECAUSE IT WAS RAINING". Cleared for Admission S - Detox or Rehab [facility] Level of Care: Medically Managed Detox Regimen/Protocol: Ativan Breathalyzer - Breathalyzer Breathalyzer: 0 Urine Drug Screen - Test Device Lot number: [id number] Expiration date: 05/19/21 - Control Is test valid?: Yes - Results Drug screen NEGATIVE: No Urine drug screen results: MTD-Methadone, BZO-Benzodiazepines Inpatient Rehab Admission - Rehab Decision to Admit Inpatient rehab admission?: No
[2019-10-29] MEDS ORDERED: ALBUTEROL SO4 HFA INHALER IH PRN (11:12)
[2019-10-29] MEDS ORDERED: ONDANSETRON *ODT* 4 MG TABLET SL PRN (11:14)
[2019-10-29] MEDS ORDERED: IBUPROFEN 400 MG TABLET (FP) PO PRN (11:14)
[2019-10-29] MEDS ORDERED: MAGNESIUM HYDROX 2400MG/30ML ORAL SUSPENSION 30 ML CUP PO PRN (11:14)
[2019-10-29] MEDS ORDERED: NICOTINE POLACRILEX 2 MG GUM BUC PRN (11:14)
[2019-10-29] MEDS ORDERED: METHOCARBAMOL 500 MG TABLET PO PRN (11:14)
[2019-10-29] MEDS ORDERED: BISMUTH SUBSALICYLATE 262 MG/15 ML BTL PO PRN (11:14)
[2019-10-29] MEDS ORDERED: MAGNESIUM CITRATE 300 ML BOTTLE PO PRN (11:14)
[2019-10-29] MEDS ORDERED: MAG HYDROX/AL HYDROX/SIMETH 30 ML UNIT-DOSE CUP PO PRN (11:14)
[2019-10-29] MEDS ORDERED: ACETAMINOPHEN 325 MG TABLET (FP) PO PRN ×2 (11:14)
[2019-10-29] MEDS ORDERED: LORazepam 1 MG TABLET PO PRN (11:14)
[2019-10-29] MEDS ORDERED: MENTHOL/PHENOL 1 EACH UD MM PRN (11:14)
[2019-10-29] MEDS: LORazepam 2 MG TABLET PO SCH ×3 (12:13→22:06)
[2019-10-29] MEDS: hydrOXYzine PAMOATE 25 MG CAPSULE (FP) PO SCH ×3 (14:19→22:06)
[2019-10-29 15:22] LABS: HEMATOCRIT 39.5 % (35.4-49); HEMOGLOBIN 13.2 GM/dL (11.7-16.9); MCH 29.9 pg (25.7-33.7); MCHC 33.5 g/dl (32.0-35.9); MEAN CELL VOLUME 89.1 fl (80-96); MEAN PLT VOLUME 9.9 fl (7.5-11.1); PLATELET COUNT 83 K/MM3 (134-434); RBC 4.43 M/mm3 (4.00-5.60); WHITE BLOOD COUNT 4.1 K/mm3 (4.0-10.0)
[2019-10-29 15:37] LABS: ALBUMIN 3.7 g/dl (3.4-5.0); BILIRUBIN,TOTAL 1.3 mg/dL (0.2-1); BLOOD UREA NITROGEN 9.3 mg/dL (7-18); CALCIUM 8.6 mg/dL (8.5-10.1); CREATININE 0.8 mg/dL (0.55-1.3); POTASSIUM 4.4 mmol/L (3.5-5.1)
--- NOTE | 2019-10-29 16:32 | EKG ---
Test Reason : Blood Pressure : / mmHG Vent. Rate : 061 BPM Atrial Rate : 061 BPM P-R Int : 132 ms QRS Dur : 082 ms QT Int : 464 ms P-R-T Axes : 049 -43 043 degrees QTc Int : 467 ms NORMAL SINUS RHYTHM LEFT AXIS DEVIATION ABNORMAL ECG WHEN COMPARED WITH ECG OF 17-AUG-2017 15:34, NO SIGNIFICANT CHANGE WAS FOUND Confirmed by HIRAM ELLIOTT MD ([id number]) on 10/29/2019 4:31:23 PM Referred By: Confirmed By:HIRAM ELLIOTT MD
[2019-10-29] MEDS: THIAMINE HCL 100 MG TABLET (FP) PO SCH (22:06)
[2019-10-29] MEDS: MELATONIN 5 MG TABLETS PO SCH (22:06)
[2019-10-30] MEDS ORDERED: METHADONE HCL 10 MG TABLET ONE (04:23)
[2019-10-30] MEDS ORDERED: METHADONE HCL 40 MG DISPERSABLE TABLET ONE (04:23)
[2019-10-30] MEDS ORDERED: METHADONE HCL 40 MG DISPERSABLE TABLET PO SCH (06:00)
[2019-10-30] MEDS: METHADONE 80 MG, METHADONE 10 MG PO SCH (06:19)
[2019-10-30] MEDS: LORazepam 2 MG TABLET PO SCH ×4 (06:19→22:18)
[2019-10-30] MEDS: hydrOXYzine PAMOATE 25 MG CAPSULE (FP) PO SCH ×5 (06:19→22:18)
[2019-10-30] MEDS: NICOTINE 7 MG/24 HOURS TOPICAL PATCH TD SCH (10:02)
[2019-10-30] MEDS: PRENATAL VITAMINS W/ FOLIC ACID TABLET (FP) PO SCH (10:02)
--- NOTE | 2019-10-30 10:20 | PN ---
S CIWA - CIWA Score Nausea/Vomitin-No Nausea/No Vomiting Muscle Tremors: 2 Anxiety: 1-Mildly Anxious Agitation: 0-Normal Activity Paroxysmal Sweats: 1-Minimal Palms Moist Orientation: 2-Disoriented Date<2 days Tacttile Disturbances: 0-None Auditory Disturbances: 0-None Visual Disturbances: 1-Very Mild Sensitivity Headache: 0-None Present CIWA-Ar Total Score: 7 BHS Progress Note (SOAP) Subjective: complaints of trouble sleeping, states he has taken Trazodone in the past Objective: 10/30/19 10:18 PE Gnl: WDWN, in no distress MS: nl mentation Motor: moves limbs well Coordination: intact Laboratory Tests 10/29/19 10/29/19 10/29/19 10:55 10:55 10:55 WBC 4.1 RBC 4.43 Hgb 13.2 Hct 39.5 MCV 89.1 MCH 29.9 MCHC 33.5 RDW 15.0 Plt Count 83 L MPV 9.9 Sodium 139 Potassium 4.4 Chloride 104 Carbon Dioxide 34 H Anion Gap 2 L BUN 9.3 Creatinine 0.8 Est GFR (CKD-EPI)AfAm 109.42 Est GFR (CKD-EPI)NonAf 94.41 Random Glucose 74 Calcium 8.6 Total Bilirubin 1.3 H AST 25 ALT 20 Alkaline Phosphatase 73 Total Protein 7.0 Albumin 3.7 Syphilis Serology RPR Titer COVID-19 (RICHARD) HIV Ag/Ab Combo Qual Negative 10/29/19 10/29/19 10/29/19 10:55 10:55 10:55 WBC RBC Hgb Hct MCV MCH MCHC RDW Plt Count MPV Sodium Potassium Chloride Carbon Dioxide Anion Gap BUN Creatinine Est GFR (CKD-EPI)AfAm Est GFR (CKD-EPI)NonAf Random Glucose Calcium Total Bilirubin AST ALT Alkaline Phosphatase Total Protein Albumin Syphilis Serology Reactive A* RPR Titer Reactive 1:1 H COVID-19 (RICHARD) Not detected HIV Ag/Ab Combo Qual Assessment: 10/30/19 10:15 Mr. Sparks is a 64 yo man who presented to [facility] on 10/28 asking for detox from Xanax. He left A after a 2 day stay in 2018 PMH: Brain tumor 2-3 years ago, asthma, Hep C treated, acid reflux, ? cirrhosis, left ankle pain post fracture 6 y ago, treated gonorrhea and Herpes PSH: right occipital region brain tumor, tx with surgery, radiation and chemo Psych: Anxiety, depression, Seroquel taken 2 days ago, another med he can not recall the name/may take for insomnia SOC: lives in a furnished room Legal: none Imp 1. Sedative use disorder, withdrawal, uncomplicated 2. Methadone: 90 mg, maintenence 3. Nicotine dependence 4. Hx of anxiety, depression 5. RPR reactive 1:1 10/30/19 10:20 Plan: 1. Ativan detox protocol, projected completion on 11/01 2. Nicotine replacement therapy 3. Will ask pt if he has been treated for syphilis. 4. Methadone maintenance of 90 mg daily, continue 5. Will have psychiatry see pt for hx of anxiety, depression insomnia, states he was on Trazodone in the past
--- NOTE | 2019-10-30 13:47 | CONSULT ---
[facility] Psychiatric Consult - Data Date of interview: 10/30/19 Admission source: [facility] Identifying data: Readmission to [address] [place] [address] for this 64 y/o male self- referred for detoxification treatment. FRANTZ issues : xanax, opioid, nicotine. Patient is , father of three (claimed one dependent at a previous interview), domiciled, unemployed and supported on SSI benefits. Substance Abuse History: Discussed with the patient. FRANTZ profile as follows : Smoking history: Current every day smoker. Have you smoked in the past 12 months: Yes. Approximately how many cigarettes per day: 5. Cigars Per Day: 0. Hx Chewing Tobacco Use: No. Initiated information on smoking cessation: Yes. 'Breaking Loose' booklet given: 10/29/19. - Substances abused. Alprazolam (Xanax). Substance route: Oral. Frequency: Daily. Amount used: 2mg. Age of first use: 54. Date of last use: 10/28/19. Xanax. Substance amount: 2 mg. Frequency of use: Daily. Substance route: Oral. Date of Last Use: 10/28/19. First use age 52 yo. Withdrawal seizure 9-18 mos ago/unclear time. Nicotine. Substance amount: 5 cigs. Frequency of use: Daily. Substance route: Smoking. Date of Last Use: 10/29/19. Began smoking age 14y. Methadone: 90 mg, pt states he was medicated today, [facility]. - Last Treatment. Date of last treatment: August 16, 2017 to August 18, AMA. Treatment type: Substance Use Disorder (FRANTZ). Where was last treatment: Detox. History of mutiple FRANTZ treatment failures. Medical History: Medical profile is remarkable for GERD, antecedent of neurosurgery for brain tumor (radiation therapy + chemotherapy), cirrhosis of the liver, anemia, withdrawal-related seizures, bronchial asthma, hepatitis C, past treatment for venereal diseases (herpes genitalis + gonorrhea + syphilis) and history of orthosurgery (fracture of left ankle in 2018). No known allergies. Patient uses a cane for ambulation. Psychiatric History: Patient endorses a history of psychiatric hospitalizations ([facility] + [facility]). He is reportedly diagnosed with Schizophrenia versus Schizoaffective Disorder (questionable historian). Mr Sparks reports no psychiatric follow up care for past 8-10 months. Has been off psychotropic medications with the exception of methadone (currently maintained on 90 mg/day of methadone at [facility] program). Patient denies history of suicide attempts. Physical/Sexual Abuse/Trauma History: Patient denies history of abuse. Additional Comment: Urine drug screen results: MTD-Methadone, BZO- Benzodiazepines. Noted. Mental Status Exam - Mental Status Exam Alert and Oriented to: Time, Place, Person Cognitive Function: Good Patient Appearance: Well Groomed Mood: Withdrawn, Hopeful Affect: Appropriate, Normal Range Patient Behavior: Fatigued, Talkative, Appropriate, Cooperative Speech Pattern: Clear, Appropriate Voice Loudness: Normal Thought Process: Intact, Goal Oriented Thought Disorder: Not Present Hallucinations: Denies Suicidal Ideation: Denies Homicidal Ideation: Denies Insight/Judgement: Poor Sleep: Poorly, Difficulty falling asleep Appetite: Good Gait/Station: Other (not observed out of bed) Psychiatric Findings - Problem List ([place] 1, 2,3) (1) Sedative, hypnotic or anxiolytic dependence with withdrawal, uncomplicated Current Visit: Yes Status: Acute (2) Opioid dependence on agonist therapy Current Visit: Yes Status: Chronic (3) Nicotine dependence Current Visit: Yes Status: Acute (4) Substance induced mood disorder Current Visit: Yes Status: Chronic (5) History of schizoaffective disorder Current Visit: Yes Status: Chronic (6) Insomnia Current Visit: Yes Status: Chronic Qualifiers: Insomnia type: unspecified Qualified Code(s): G47.00 - Insomnia, unspecified (7) Non-compliance Current Visit: Yes Status: Chronic - Initial Treatment Plan Initial Treatment Plan: Psychoeducation. Sleep hygiene. Detoxification in progress. Pathological Technician called [facility] ([phone]) for verification of medications : none since 2017 (only [place] on file). Insomnia is addressed with remeron 7.5 mg po hs. Side effects/benefits discussed with patient. Consent granted to MD. Nelson.
[2019-10-30] MEDS: THIAMINE HCL 100 MG TABLET (FP) PO SCH (22:18)
[2019-10-30] MEDS: MELATONIN 5 MG TABLETS PO SCH (22:19)
[2019-10-31] MEDS ORDERED: METHADONE HCL 40 MG DISPERSABLE TABLET ONE (04:26)
[2019-10-31] MEDS ORDERED: METHADONE HCL 10 MG TABLET ONE (04:26)
[2019-10-31] MEDS: METHADONE 80 MG, METHADONE 10 MG PO SCH (05:32)
[2019-10-31] MEDS: hydrOXYzine PAMOATE 25 MG CAPSULE (FP) PO SCH ×5 (05:32→22:21)
[2019-10-31] MEDS: LORazepam 1 MG TABLET PO SCH ×4 (05:32→22:21)
[2019-10-31] MEDS: PRENATAL VITAMINS W/ FOLIC ACID TABLET (FP) PO SCH (10:46)
[2019-10-31] MEDS: NICOTINE 7 MG/24 HOURS TOPICAL PATCH TD SCH (10:48)
--- NOTE | 2019-10-31 11:04 | PN ---
BHS CIWA - CIWA Score Nausea/Vomitin-No Nausea/No Vomiting Muscle Tremors: None Anxiety: 2 Agitation: 0-Normal Activity Paroxysmal Sweats: 2 Orientation: 0-Oriented Tacttile Disturbances: 0-None Auditory Disturbances: 0-None Visual Disturbances: 0-None Headache: 2-Mild CIWA-Ar Total Score: 6 BHS Progress Note (SOAP) Subjective: c/o anxiety, headache, and sweats. Objective: 10/31/19 11:03 Vital Signs 10/31/19 10/31/19 06:32 08:52 Temperature 97.6 F 97.1 F L Pulse Rate 69 78 Respiratory 16 18 Rate Blood Pressure 132/89 100/73 O2 Sat by Pulse 97 97 Oximetry (%) Assessment: 10/31/19 11:03 AOX3, in no acute respiratory distress. Full ROM, ambulating in the unit. Withdrawal symptoms. Plan: continue detox.
[2019-10-31] MEDS: THIAMINE HCL 100 MG TABLET (FP) PO SCH (22:21)
[2019-10-31] MEDS: MELATONIN 5 MG TABLETS PO SCH (22:21)
[2019-11-01] MEDS ORDERED: LORazepam 0.5 MG TABLET PO PRN
[2019-11-01] MEDS ORDERED: METHADONE HCL 10 MG TABLET ONE (04:32)
[2019-11-01] MEDS ORDERED: METHADONE HCL 40 MG DISPERSABLE TABLET ONE (04:32)
[2019-11-01] MEDS ORDERED: LORazepam 0.5 MG TABLET PO SCH (05:00)
[2019-11-01] MEDS: METHADONE 80 MG, METHADONE 10 MG PO SCH (05:25)
[2019-11-01] MEDS: hydrOXYzine PAMOATE 25 MG CAPSULE (FP) PO SCH (05:25)
[2019-11-01 06:25] VITALS: BP 115/62; PULSE 60; TEMP 96.6
--- NOTE | 2019-11-01 08:35 | DS ---
[facility] Detox Discharge Summary Admission Date: 10/29/19 Discharge Date: 11/01/19 - History Present History: Sedative Dependence Additional Comments: 64 years old male was admitted on 10/29/19 for benzo with drawal sx management treated with ativan detox regiment mr veliz prefers to leave detox today instead of 11/02/19 due to feels ready and connected with AA sponsor that mr veliz had 10 years sobriety due to current "stressful events" relapse mr veliz states that he wants to return to methadone program for behavioral and psychosocial therapies as well as continue AA and NA for support General Appearance: Yes: Nourished, Appropriately Dressed, Thin, mild Tremorous, mild Anxious HEENTM: Yes: EOMI, Hearing grossly Normal, Normocephalic, Normal Voice Respiratory: Yes: Lungs Clear, No Respiratory Distress, No Accessory Muscle Use Neck: Yes: Within Normal Limits, Supple Breast: Yes: Breast Exam Deferred Cardiology: Yes: Regular Rhythm, Regular Rate Abdominal: Yes: Normal Bowel Sounds, Non Tender, Flat, Soft Genitourinary: Yes: Other (deferred) Back: Yes: Normal Inspection Musculoskeletal: Yes: Gait Steady Extremities: Yes: Normal Inspection, Non-Tender Neurological: Yes: Alert, Normal Response Integumentary: Yes: Within Normal Limits Pertinent Past History: benzo withdrawal Laboratory Tests 10/29/19 10/29/19 10/29/19 10:55 10:55 10:55 WBC 4.1 RBC 4.43 Hgb 13.2 Hct 39.5 MCV 89.1 MCH 29.9 MCHC 33.5 RDW 15.0 Plt Count 83 L MPV 9.9 Sodium 139 Potassium 4.4 Chloride 104 Carbon Dioxide 34 H Anion Gap 2 L BUN 9.3 Creatinine 0.8 Est GFR (CKD-EPI)AfAm 109.42 Est GFR (CKD-EPI)NonAf 94.41 Random Glucose 74 Calcium 8.6 Total Bilirubin 1.3 H AST 25 ALT 20 Alkaline Phosphatase 73 Total Protein 7.0 Albumin 3.7 Syphilis Serology RPR Titer COVID-19 (RICHARD) HIV Ag/Ab Combo Qual Negative 10/29/19 10/29/19 10/29/19 10:55 10:55 10:55 WBC RBC Hgb Hct MCV MCH MCHC RDW Plt Count MPV Sodium Potassium Chloride Carbon Dioxide Anion Gap BUN Creatinine Est GFR (CKD-EPI)AfAm Est GFR (CKD-EPI)NonAf Random Glucose Calcium Total Bilirubin AST ALT Alkaline Phosphatase Total Protein Albumin Syphilis Serology Reactive A* RPR Titer Reactive 1:1 H COVID-19 (RICHARD) Not detected HIV Ag/Ab Combo Qual time for discharge 49 minutes treatment team met with mr veliz to discuss the benefits of ativan regiment completion - Physical Exam Results Vital Signs: Vital Signs Temperature 96.6 F L 11/01/19 06:24 Pulse Rate 60 11/01/19 06:24 Respiratory Rate 18 11/01/19 06:24 Blood Pressure 115/62 11/01/19 06:24 O2 Sat by Pulse Oximetry (%) 99 11/01/19 06:24 Pertinent Admission Physical Exam Findings: benzo withdrawal Vital Signs - 24 hr 10/31/19 10/31/19 11/01/19 16:37 20:48 06:24 Temperature 97.3 F L 97.1 F L 96.6 F L Pulse Rate 72 81 60 Respiratory 16 16 18 Rate Blood Pressure 128/78 117/70 115/62 O2 Sat by Pulse 98 99 Oximetry (%) syphilis contacted treated mr veliz was treated with penicillin - Treatment Hospital Course: Detox Protocol Followed, Detoxed Safely, Responded well, Discharged Condition Good, Rehab Referral Accepted Patient has Accepted a Rehab Referral to: methadone program - Medication Discharge Medications: Ambulatory Orders Albuterol Sulfate Inhaler - [Ventolin HFA Inhaler -] 2 inh PO Q4H PRN 10/18/16 Methadone [Dolophine -] 90 mg PO DAILY 10/29/19 - Diagnosis (1) Hepatitis C Status: Chronic Qualifiers: Viral hepatitis chronicity: carrier Qualified Code(s): B18.2 - Chronic viral hepatitis C (2) Nicotine dependence Status: Acute Qualifiers: Nicotine product type: cigarettes Substance use status: in withdrawal Qualified Code(s): F17.213 - Nicotine dependence, cigarettes, with withdrawal (3) Sedative, hypnotic or anxiolytic dependence with withdrawal, uncomplicated Status: Acute (4) Asthma Status: Chronic Qualifiers: Asthma severity: mild Asthma persistence: intermittent Asthma complication type: uncomplicated Qualified Code(s): J45.20 - Mild intermittent asthma, uncomplicated (5) Cirrhosis of liver Status: Chronic Qualifiers: Hepatic cirrhosis type: unspecified hepatic cirrhosis Ascites presence: unspecified Qualified Code(s): K74.60 - Unspecified cirrhosis of liver (6) Methadone maintenance therapy patient Status: Chronic (7) Substance induced mood disorder Status: Suspected (8) Brain tumor Status: Resolved - AMA Did Patient Leave Against Medical Advice: No CIWA Score - CIWA Score Nausea/Vomitin-No Nausea/No Vomiting Muscle Tremors: None Anxiety: 1-Mildly Anxious Agitation: 0-Normal Activity Paroxysmal Sweats: 1-Minimal Palms Moist Orientation: 0-Oriented Tacttile Disturbances: 0-None Auditory Disturbances: 0-None Visual Disturbances: 0-None Headache: 0-None Present CIWA-Ar Total Score: 2
[2019-11-02] MEDS ORDERED: LORazepam 0.5 MG TABLET PO ONE (05:00)
== END 2019-11-01 09:12 | disposition home or self-care (01) | DRG 773 ==
LOC: YASAS 09:24 → Y3N 10:37
PROVIDERS: ADMIT Allergy & Immunology; ATTEND Allergy & Immunology
PROC: HZ2ZZZZ Detoxification Services for Substance Abuse Treatment (ICD-10-PCS; principal; 2019-10-29)
DX: F13.230 Sedative, hypnotic or anxiolytic dependence with withdrawal, uncomplicated (principal); F11.20 Opioid dependence, uncomplicated; F17.210 Nicotine dependence, cigarettes, uncomplicated; F25.9 Schizoaffective disorder, unspecified; F41.9 Anxiety disorder, unspecified; F32.9 Major depressive disorder, single episode, unspecified; F19.24 Other psychoactive substance dependence with psychoactive substance-induced mood disorder; G47.00 Insomnia, unspecified; J45.20 Mild intermittent asthma, uncomplicated; K21.9 Gastro-esophageal reflux disease without esophagitis; K74.60 Unspecified cirrhosis of liver; B18.2 Chronic viral hepatitis C; Z86.2 Personal history of diseases of the blood and blood-forming organs and certain disorders involving the immune mechanism; Z85.841 Personal history of malignant neoplasm of brain; Z87.81 Personal history of (healed) traumatic fracture; Z86.19 Personal history of other infectious and parasitic diseases; Z86.69 Personal history of other diseases of the nervous system and sense organs; Z91.19 Patient's noncompliance with other medical treatment and regimen
CPT/HCPCS: 36415; 80053; 85027; 86593; 86780; 87389; 93005; 93010; U0003

== ENCOUNTER 2020-03-21 13:47 | Inpatient (IN) | payer OTHER ==
[2020-03-21 16:10] VITALS: BMI 22.6
[2020-03-21] MEDS ORDERED: P-EPHED 60MG/TRIPROLIDI 2.5MG TABLET PO PRN (22:10)
[2020-03-21] MEDS ORDERED: MAGNESIUM CITRATE 300 ML BOTTLE PO PRN (22:10)
[2020-03-21] MEDS ORDERED: LOPERAMIDE HCL 2 MG CAPSULE PO PRN (22:10)
[2020-03-21] MEDS ORDERED: NICOTINE POLACRILEX 2 MG GUM BC PRN (22:10)
[2020-03-21] MEDS ORDERED: MAGNESIUM HYDROX 2400MG/30ML ORAL SUSPENSION 30 ML CUP PO PRN (22:10)
[2020-03-21] MEDS ORDERED: MAG HYDROX/AL HYDROX/SIMETH 30 ML UNIT-DOSE CUP PO PRN (22:10)
[2020-03-21] MEDS ORDERED: guaiFENesin 200 MG/10 ML 10 ML UNIT-DOSE CUPS PO PRN (22:10)
[2020-03-22] MEDS ORDERED: ONDANSETRON *ODT* 4 MG TABLET SL ONE (00:09)
[2020-03-22] MEDS ORDERED: MELATONIN 5 MG TABLETS PO ONE (00:30)
[2020-03-22] MEDS: ACETAMINOPHEN 325 MG TABLET (FP) PO PRN (00:58)
[2020-03-22] MEDS ORDERED: METHADONE 80 MG, METHADONE 10 MG, METHADONE 5 MG PO ONE (09:26)
[2020-03-22] MEDS ORDERED: METHADONE HCL 10 MG TABLET PO ONE (09:26)
[2020-03-22] MEDS: PRENATAL VITAMINS W/ FOLIC ACID TABLET (FP) PO SCH (09:46)
[2020-03-22] MEDS: hydrOXYzine PAMOATE 25 MG CAPSULE (FP) PO PRN ×2 (09:46→21:45)
[2020-03-22] MEDS: NICOTINE 7 MG/24 HOURS TOPICAL PATCH TD SCH (09:46)
[2020-03-22] MEDS: IBUPROFEN 400 MG TABLET (FP) PO PRN (09:48)
[2020-03-22] MEDS ORDERED: METHADONE HCL 5 MG TABLET ONE (10:47)
[2020-03-22] MEDS ORDERED: METHADONE HCL 40 MG DISPERSABLE TABLET ONE (10:48)
[2020-03-22] MEDS ORDERED: METHADONE HCL 10 MG TABLET ONE (10:48)
[2020-03-22 11:49] LABS: HEMATOCRIT 44.5 % (35.4-49); HEMOGLOBIN 14.8 GM/dL (11.7-16.9); MCH 29.8 pg (25.7-33.7); MCHC 33.4 g/dl (32.0-35.9); MEAN CELL VOLUME 89.2 fl (80-96); PLATELET COUNT 96 K/MM3 (134-434); RBC 4.98 M/mm3 (4.00-5.60); RDW 14.4 % (11.9-15.9); WHITE BLOOD COUNT 4.7 K/mm3 (4.0-10.0)
[2020-03-22 12:06] LABS: POTASSIUM 4.7 mmol/L (3.5-5.1)
[2020-03-22 12:24] LABS: CALCIUM 9.5 mg/dL (8.5-10.1)
[2020-03-22 12:25] LABS: ALBUMIN 4.2 g/dl (3.4-5.0); BLOOD UREA NITROGEN 15.8 mg/dL (7-18)
[2020-03-22 12:28] LABS: CREATININE 0.9 mg/dL (0.55-1.3)
[2020-03-22 12:30] LABS: TOT PROT 7.8 g/dl (6.4-8.2)
[2020-03-22] MEDS: THIAMINE HCL 100 MG TABLET (FP) PO SCH (21:43)
[2020-03-22] MEDS: MELATONIN 5 MG TABLETS PO PRN (21:43)
[2020-03-22] MEDS: MIRTAZAPINE 15 MG TABLET (FP) PO SCH (21:45)
[2020-03-23] MEDS ORDERED: METHADONE HCL 10 MG TABLET PO SCH (06:00)
[2020-03-23] MEDS ORDERED: METHADONE HCL 5 MG TABLET ONE (06:12)
[2020-03-23] MEDS ORDERED: METHADONE HCL 10 MG TABLET ONE (06:12)
[2020-03-23] MEDS ORDERED: METHADONE HCL 40 MG DISPERSABLE TABLET ONE (06:12)
[2020-03-23] MEDS: METHADONE 80 MG, METHADONE 10 MG, METHADONE 5 MG PO SCH (06:40)
[2020-03-23] MEDS: IBUPROFEN 400 MG TABLET (FP) PO PRN (06:41)
[2020-03-23] MEDS: PRENATAL VITAMINS W/ FOLIC ACID TABLET (FP) PO SCH (09:34)
[2020-03-23] MEDS: NICOTINE 7 MG/24 HOURS TOPICAL PATCH TD SCH (09:34)
[2020-03-23] MEDS: hydrOXYzine PAMOATE 25 MG CAPSULE (FP) PO PRN ×2 (09:35→21:21)
[2020-03-23] MEDS ORDERED: ALBUTEROL SO4 HFA INHALER IH PRN (10:02)
[2020-03-23] MEDS: THIAMINE HCL 100 MG TABLET (FP) PO SCH (21:21)
[2020-03-23] MEDS: MELATONIN 5 MG TABLETS PO PRN (21:21)
[2020-03-23] MEDS: MIRTAZAPINE 15 MG TABLET (FP) PO SCH (21:21)
[2020-03-24] MEDS ORDERED: METHADONE HCL 10 MG TABLET ONE (03:20)
[2020-03-24] MEDS ORDERED: METHADONE HCL 5 MG TABLET ONE (03:20)
[2020-03-24] MEDS ORDERED: METHADONE HCL 40 MG DISPERSABLE TABLET ONE (03:21)
[2020-03-24] MEDS: ACETAMINOPHEN 325 MG TABLET (FP) PO PRN (06:34)
[2020-03-24] MEDS: METHADONE 80 MG, METHADONE 10 MG, METHADONE 5 MG PO SCH (06:35)
[2020-03-24] MEDS: NICOTINE 7 MG/24 HOURS TOPICAL PATCH TD SCH (09:21)
[2020-03-24] MEDS: PRENATAL VITAMINS W/ FOLIC ACID TABLET (FP) PO SCH (09:21)
[2020-03-24 14:30] LABS: EPI CELLS 2 /uL (0-25.1); HYALINE CASTS 0 /uL (0-3.1); URINE APPEARANCE CLEAR; URINE BACTERIA 475 /uL (0-1359); URINE BILIRUBIN NEGATIVE (NEGATIVE); URINE COLOR YELLOW; URINE GLUCOSE (UA) NEGATIVE (NEGATIVE); URINE KETONE NEGATIVE (NEGATIVE); URINE LEUK ESTERASE NEGATIVE (NEGATIVE); URINE NITRITE NEGATIVE (NEGATIVE); URINE PROTEIN NEGATIVE (NEGATIVE); URINE RBC 3 /uL (0-23.9); URINE UROBILINOGEN 0.2 mg/dL (0.2-1.0); URINE WBC 17 /uL (0-25.8)
[2020-03-24] MEDS: THIAMINE HCL 100 MG TABLET (FP) PO SCH (21:45)
[2020-03-24] MEDS: MELATONIN 5 MG TABLETS PO PRN (21:45)
[2020-03-24] MEDS: MIRTAZAPINE 15 MG TABLET (FP) PO SCH (21:46)
[2020-03-25] MEDS ORDERED: METHADONE HCL 10 MG TABLET ONE (03:44)
[2020-03-25] MEDS ORDERED: METHADONE HCL 5 MG TABLET ONE (03:44)
[2020-03-25] MEDS ORDERED: METHADONE HCL 40 MG DISPERSABLE TABLET ONE (03:45)
[2020-03-25] MEDS: METHADONE 80 MG, METHADONE 10 MG, METHADONE 5 MG PO SCH (06:39)
[2020-03-25] MEDS: PRENATAL VITAMINS W/ FOLIC ACID TABLET (FP) PO SCH (09:24)
[2020-03-25] MEDS: ACETAMINOPHEN 325 MG TABLET (FP) PO PRN (09:26)
[2020-03-25] MEDS: NICOTINE 7 MG/24 HOURS TOPICAL PATCH TD SCH (09:26)
[2020-03-25] MEDS: MIRTAZAPINE 15 MG TABLET (FP) PO SCH (21:03)
[2020-03-25] MEDS: THIAMINE HCL 100 MG TABLET (FP) PO SCH (21:03)
[2020-03-26] MEDS ORDERED: METHADONE HCL 5 MG TABLET ONE (06:16)
[2020-03-26] MEDS ORDERED: METHADONE HCL 10 MG TABLET ONE (06:16)
[2020-03-26] MEDS: METHADONE 80 MG, METHADONE 10 MG, METHADONE 5 MG PO SCH (06:17)
[2020-03-26] MEDS ORDERED: METHADONE HCL 40 MG DISPERSABLE TABLET ONE (06:17)
[2020-03-26] MEDS: NICOTINE 7 MG/24 HOURS TOPICAL PATCH TD SCH (09:29)
[2020-03-26] MEDS: PRENATAL VITAMINS W/ FOLIC ACID TABLET (FP) PO SCH (09:29)
[2020-03-26] MEDS: MELATONIN 5 MG TABLETS PO PRN (21:03)
[2020-03-26] MEDS: THIAMINE HCL 100 MG TABLET (FP) PO SCH (21:03)
[2020-03-26] MEDS: MIRTAZAPINE 15 MG TABLET (FP) PO SCH (21:04)
[2020-03-27] MEDS ORDERED: METHADONE HCL 10 MG TABLET ONE (03:37)
[2020-03-27] MEDS ORDERED: METHADONE HCL 5 MG TABLET ONE (03:37)
[2020-03-27] MEDS ORDERED: METHADONE HCL 40 MG DISPERSABLE TABLET ONE (03:37)
[2020-03-27] MEDS: METHADONE 80 MG, METHADONE 10 MG, METHADONE 5 MG PO SCH (06:29)
[2020-03-27] MEDS: ACETAMINOPHEN 325 MG TABLET (FP) PO PRN (06:30)
[2020-03-27] MEDS: PRENATAL VITAMINS W/ FOLIC ACID TABLET (FP) PO SCH (09:15)
[2020-03-27] MEDS: NICOTINE 7 MG/24 HOURS TOPICAL PATCH TD SCH (09:15)
[2020-03-27] MEDS: THIAMINE HCL 100 MG TABLET (FP) PO SCH (21:03)
[2020-03-27] MEDS: MELATONIN 5 MG TABLETS PO PRN (21:03)
[2020-03-27] MEDS: MIRTAZAPINE 15 MG TABLET (FP) PO SCH (21:03)
[2020-03-28] MEDS ORDERED: METHADONE HCL 10 MG TABLET ONE (03:51)
[2020-03-28] MEDS ORDERED: METHADONE HCL 5 MG TABLET ONE (03:51)
[2020-03-28] MEDS ORDERED: METHADONE HCL 40 MG DISPERSABLE TABLET ONE (03:52)
[2020-03-28] MEDS: METHADONE 80 MG, METHADONE 10 MG, METHADONE 5 MG PO SCH (06:49)
[2020-03-28] MEDS: PRENATAL VITAMINS W/ FOLIC ACID TABLET (FP) PO SCH (09:33)
[2020-03-28] MEDS: NICOTINE 7 MG/24 HOURS TOPICAL PATCH TD SCH (09:33)
[2020-03-28] MEDS: hydrOXYzine PAMOATE 25 MG CAPSULE (FP) PO PRN (21:52)
[2020-03-28] MEDS: MIRTAZAPINE 15 MG TABLET (FP) PO SCH (21:52)
[2020-03-28] MEDS: MELATONIN 5 MG TABLETS PO PRN (21:52)
[2020-03-28] MEDS: THIAMINE HCL 100 MG TABLET (FP) PO SCH (21:52)
[2020-03-29] MEDS ORDERED: METHADONE HCL 5 MG TABLET ONE (06:14)
[2020-03-29] MEDS ORDERED: METHADONE HCL 10 MG TABLET ONE (06:14)
[2020-03-29] MEDS ORDERED: METHADONE HCL 40 MG DISPERSABLE TABLET ONE (06:15)
[2020-03-29] MEDS: METHADONE 80 MG, METHADONE 10 MG, METHADONE 5 MG PO SCH (06:20)
[2020-03-29] MEDS: ACETAMINOPHEN 325 MG TABLET (FP) PO PRN (06:22)
[2020-03-29] MEDS: PRENATAL VITAMINS W/ FOLIC ACID TABLET (FP) PO SCH (09:29)
[2020-03-29] MEDS: NICOTINE 7 MG/24 HOURS TOPICAL PATCH TD SCH (09:29)
[2020-03-29] MEDS: MIRTAZAPINE 15 MG TABLET (FP) PO SCH (21:05)
[2020-03-29] MEDS: MELATONIN 5 MG TABLETS PO PRN (21:05)
[2020-03-29] MEDS: THIAMINE HCL 100 MG TABLET (FP) PO SCH (21:06)
[2020-03-29] MEDS: hydrOXYzine PAMOATE 25 MG CAPSULE (FP) PO PRN (21:07)
[2020-03-30] MEDS ORDERED: METHADONE HCL 5 MG TABLET ONE (03:21)
[2020-03-30] MEDS ORDERED: METHADONE HCL 10 MG TABLET ONE (03:21)
[2020-03-30] MEDS ORDERED: METHADONE HCL 40 MG DISPERSABLE TABLET ONE (03:22)
[2020-03-30] MEDS: METHADONE 80 MG, METHADONE 10 MG, METHADONE 5 MG PO SCH (06:48)
[2020-03-30] MEDS: PRENATAL VITAMINS W/ FOLIC ACID TABLET (FP) PO SCH (09:27)
[2020-03-30] MEDS: NICOTINE 7 MG/24 HOURS TOPICAL PATCH TD SCH (09:28)
[2020-03-30] MEDS: hydrOXYzine PAMOATE 25 MG CAPSULE (FP) PO PRN (21:06)
[2020-03-30] MEDS: THIAMINE HCL 100 MG TABLET (FP) PO SCH (21:06)
[2020-03-30] MEDS: MIRTAZAPINE 15 MG TABLET (FP) PO SCH (21:07)
[2020-03-30] MEDS: MELATONIN 5 MG TABLETS PO PRN (21:08)
[2020-03-31] MEDS ORDERED: METHADONE HCL 10 MG TABLET ONE (05:46)
[2020-03-31] MEDS ORDERED: METHADONE HCL 5 MG TABLET ONE (05:46)
[2020-03-31] MEDS ORDERED: METHADONE HCL 40 MG DISPERSABLE TABLET ONE (05:47)
[2020-03-31] MEDS: METHADONE 80 MG, METHADONE 10 MG, METHADONE 5 MG PO SCH (06:31)
[2020-03-31] MEDS: PRENATAL VITAMINS W/ FOLIC ACID TABLET (FP) PO SCH (09:28)
[2020-03-31] MEDS: NICOTINE 7 MG/24 HOURS TOPICAL PATCH TD SCH (09:28)
[2020-03-31] MEDS: hydrOXYzine PAMOATE 25 MG CAPSULE (FP) PO PRN (21:06)
[2020-03-31] MEDS: THIAMINE HCL 100 MG TABLET (FP) PO SCH (21:06)
[2020-03-31] MEDS: MELATONIN 5 MG TABLETS PO PRN (21:07)
[2020-03-31] MEDS: MIRTAZAPINE 15 MG TABLET (FP) PO SCH (21:07)
[2020-04-01] MEDS ORDERED: METHADONE HCL 40 MG DISPERSABLE TABLET ONE (07:29)
[2020-04-01] MEDS ORDERED: METHADONE HCL 10 MG TABLET ONE (07:29)
[2020-04-01] MEDS ORDERED: METHADONE HCL 5 MG TABLET ONE (07:29)
[2020-04-01] MEDS: METHADONE 80 MG, METHADONE 10 MG, METHADONE 5 MG PO SCH (07:30)
[2020-04-01] MEDS: NICOTINE 7 MG/24 HOURS TOPICAL PATCH TD SCH (09:16)
[2020-04-01] MEDS: PRENATAL VITAMINS W/ FOLIC ACID TABLET (FP) PO SCH (09:16)
[2020-04-01] MEDS: THIAMINE HCL 100 MG TABLET (FP) PO SCH (21:07)
[2020-04-01] MEDS: MELATONIN 5 MG TABLETS PO PRN (21:08)
[2020-04-01] MEDS: MIRTAZAPINE 15 MG TABLET (FP) PO SCH (21:08)
[2020-04-02] MEDS ORDERED: METHADONE HCL 40 MG DISPERSABLE TABLET ONE (04:00)
[2020-04-02] MEDS ORDERED: METHADONE HCL 10 MG TABLET ONE (04:00)
[2020-04-02] MEDS ORDERED: METHADONE HCL 5 MG TABLET ONE (04:00)
[2020-04-02] MEDS: METHADONE 80 MG, METHADONE 10 MG, METHADONE 5 MG PO SCH (06:24)
[2020-04-02] MEDS: PRENATAL VITAMINS W/ FOLIC ACID TABLET (FP) PO SCH (09:23)
[2020-04-02] MEDS: NICOTINE 7 MG/24 HOURS TOPICAL PATCH TD SCH (09:23)
[2020-04-02] MEDS: MIRTAZAPINE 15 MG TABLET (FP) PO SCH (21:46)
[2020-04-02] MEDS: hydrOXYzine PAMOATE 25 MG CAPSULE (FP) PO PRN (21:47)
[2020-04-02] MEDS: MELATONIN 5 MG TABLETS PO PRN (21:47)
[2020-04-02] MEDS: THIAMINE HCL 100 MG TABLET (FP) PO SCH (21:47)
[2020-04-03] MEDS ORDERED: METHADONE HCL 10 MG TABLET ONE (03:42)
[2020-04-03] MEDS ORDERED: METHADONE HCL 5 MG TABLET ONE (03:42)
[2020-04-03] MEDS ORDERED: METHADONE HCL 40 MG DISPERSABLE TABLET ONE (03:43)
[2020-04-03] MEDS: METHADONE 80 MG, METHADONE 10 MG, METHADONE 5 MG PO SCH (06:27)
[2020-04-03] MEDS: NICOTINE 7 MG/24 HOURS TOPICAL PATCH TD SCH (09:11)
[2020-04-03] MEDS: PRENATAL VITAMINS W/ FOLIC ACID TABLET (FP) PO SCH (09:11)
[2020-04-03] MEDS: MELATONIN 5 MG TABLETS PO PRN (21:06)
[2020-04-03] MEDS: hydrOXYzine PAMOATE 25 MG CAPSULE (FP) PO PRN (21:06)
[2020-04-03] MEDS: THIAMINE HCL 100 MG TABLET (FP) PO SCH (21:06)
[2020-04-03] MEDS: MIRTAZAPINE 15 MG TABLET (FP) PO SCH (21:09)
[2020-04-04] MEDS ORDERED: METHADONE HCL 10 MG TABLET ONE (06:19)
[2020-04-04] MEDS: METHADONE 80 MG, METHADONE 10 MG, METHADONE 5 MG PO SCH (06:19)
[2020-04-04] MEDS ORDERED: METHADONE HCL 40 MG DISPERSABLE TABLET ONE (06:19)
[2020-04-04] MEDS ORDERED: METHADONE HCL 5 MG TABLET ONE (06:19)
[2020-04-04 06:50] VITALS: BP 156/88; PULSE 73; TEMP 97.3
[2020-04-04] MEDS: PRENATAL VITAMINS W/ FOLIC ACID TABLET (FP) PO SCH (09:37)
[2020-04-04] MEDS: NICOTINE 7 MG/24 HOURS TOPICAL PATCH TD SCH (09:37)
== END 2020-04-04 10:15 | disposition home or self-care (01) | DRG 772 ==
LOC: YASAS 13:47 → Y5N 23:02
PROVIDERS: ADMIT Allergy & Immunology; ATTEND Allergy & Immunology
PROC: HZ42ZZZ Group Counseling for Substance Abuse Treatment, Cognitive-Behavioral (ICD-10-PCS; principal; 2020-03-21)
DX: F13.20 Sedative, hypnotic or anxiolytic dependence, uncomplicated (principal); F11.20 Opioid dependence, uncomplicated; F17.210 Nicotine dependence, cigarettes, uncomplicated; F19.282 Other psychoactive substance dependence with psychoactive substance-induced sleep disorder; F19.24 Other psychoactive substance dependence with psychoactive substance-induced mood disorder; F20.9 Schizophrenia, unspecified; F41.8 Other specified anxiety disorders; F32.9 Major depressive disorder, single episode, unspecified; I10 Essential (primary) hypertension; J45.20 Mild intermittent asthma, uncomplicated; K74.60 Unspecified cirrhosis of liver; K21.9 Gastro-esophageal reflux disease without esophagitis; G47.00 Insomnia, unspecified; B18.2 Chronic viral hepatitis C; A53.0 Latent syphilis, unspecified as early or late; R56.9 Unspecified convulsions; I69.854 Hemiplegia and hemiparesis following other cerebrovascular disease affecting left non-dominant side; Z86.19 Personal history of other infectious and parasitic diseases; Z86.2 Personal history of diseases of the blood and blood-forming organs and certain disorders involving the immune mechanism; Z85.841 Personal history of malignant neoplasm of brain; Z99.89 Dependence on other enabling machines and devices
CPT/HCPCS: 36415; 80053; 81003; 85027; 86593; 86780; C9803; Q0162; U0003